=== PATIENT | male | born 1940 | race Caucasian/White ===

== ENCOUNTER 2016-09-21 15:18 | Observation (INO) | payer MEDICARE, BC ==
[2016-09-21 16:18] LABS: Basophils # (A) 0.1 k/uL (0-0.2); Basophils % (A) 1 %; CHCM 32.1; Eosinophils # (A) 0.3 k/uL (0-0.7); Eosinophils % (A) 3 %; HCT 35.7 % (39.0-53.0); HGB 11.8 gm/dL (13.0-17.5); Luc # (Auto) 0.13; Luc % (Auto) 1; Lymphocytes # (A) 1.6 k/uL (1.0-4.8); Lymphocytes % (A) 16 %; MCV 93.9 fL (80.0-100.0); Mean Platelet Volume 7.3; Monocytes # (A) 0.5 k/uL (0-1.0); Monocytes % (A) 5 %; Neutrophils # (A) 7.4 k/uL (1.3-7.7); Neutrophils % (A) 75 %; RDW 14.3 % (11.5-15.5); WBC 9.9 k/uL (3.8-10.6); WBC (Perox) 10.08
--- NOTE | 2016-09-21 16:22 | XR ---
EXAMINATION TYPE: XR chest 2V DATE OF EXAM: 09/21/2016 COMPARISON: NONE HISTORY: Syncope today and weakness. TECHNIQUE: Frontal and lateral views of the chest are obtained. FINDINGS: Underlying emphysematous change is present. There is no focal air space opacity, pleural e ffusion, or pneumothorax seen. The cardiac silhouette size is within normal limits. The osseous st ructures are intact. IMPRESSION: Chronic emphysematous change without suspicious acute process.
[2016-09-21 16:27] LABS: INR 1.1 (<1.1); Partial Thromboplastin Time 23.8 sec (22.0-30.0); Prothrombin Time 11.1 sec (9.0-12.0)
[2016-09-21 16:32] LABS: ALT 20 U/L (21-72); AST 18 U/L (17-59); Alkaline Phosphatase 56 U/L (38-126); Anion Gap 7 mmol/L; Blood Urea Nitrogen 29 mg/dL (9-20); Calcium 9.1 mg/dL (8.4-10.2); Carbon Dioxide 27 mmol/L (22-30); Chloride 108 mmol/L (98-107); Glucose 110 mg/dL (74-99); Magnesium 1.9 mg/dL (1.6-2.3); Non-African American GFR(MDRD) 60 (>60 ml/min/1.73 sqM); Potassium 4.3 mmol/L (3.5-5.1); Sodium 142 mmol/L (137-145); Total Bilirubin 0.5 mg/dL (0.2-1.3); Total Protein 6.2 g/dL (6.3-8.2)
[2016-09-21 16:42] LABS: Creatine Kinase 57 U/L (55-170)
[2016-09-21 16:55] LABS: Creatine Kinase MB 1.1 ng/mL (0.0-2.4); Troponin I <0.012 ng/mL (0.000-0.034)
[2016-09-21 18:01] LABS: Appearance,Urine Clear (Clear); Bilirubin,Urine Negative (Negative); Glucose,Urine (UA) Negative (Negative); Ketones,Urine Negative (Negative); Leukocyte Esterase,Urine Negative (Negative); Nitrite,Urine Negative (Negative); PH, Urine 5.5 (5.0-8.0); Protein,Urine Trace (Negative); Specific Gravity,Urine 1.017 (1.001-1.035); UA Billing (MACRO vs. MICRO) CHEM; Urobilinogen,Urine <2.0 mg/dL (<2.0)
[2016-09-21] MEDS ORDERED: NALOXONE 0.4 MG/ML 1 ML VIAL IV PRN (19:20)
[2016-09-21] MEDS ORDERED: ACETAMINOPHEN TAB 325 MG TAB PO PRN (19:20)
[2016-09-21] MEDS ORDERED: ONDANSETRON 4 MG/2 ML VIAL IVP PRN (19:20)
--- NOTE | 2016-09-21 19:33 | ED ---
General Adult HPI - General Chief complaint: Altered Mental Status Stated complaint: Hypotension Time Seen by Provider: 09/21/16 15:31 Source: patient, family, RN notes reviewed Mode of arrival: EMS Limitations: altered mental status, physical limitation - History of Present Illness Initial comments: 76-year-old male with history of dementia presents from home. According EMS patient had a blood pressure of 60 systolic. According the patient's family was more sleepy than usual. He has had nausea and diarrhea over the past several days. No episodes of vomiting patient proximally 4 episodes of diarrhea today. Patient is a poor historian but according to family does deny chest pain denies shortness of breath denies cough denies fever. Patient was recently started on Coumadin for coronary artery disease. He does have a history of hypertension as well. - Related Data Home Medications Medication Instructions Recorded Confirmed Aspirin [Children's Aspirin] 81 mg PO DAILY 09/21/16 09/21/16 Clopidogrel [Plavix] 75 mg PO DAILY 09/21/16 09/21/16 Isosorbide Mononitrate ER [Imdur] 30 mg PO QAM 09/21/16 09/21/16 Lisinopril [Zestril] 2.5 mg PO DAILY 09/21/16 09/21/16 Melatonin 6 mg PO HS PRN 09/21/16 09/21/16 Metoprolol Tartrate [Lopressor] 25 mg PO BID 09/21/16 09/21/16 Nitroglycerin Sl Tabs [Nitrostat] 0.4 mg SUBLINGUAL Q5M PRN 09/21/16 09/21/16 Ranolazine [Ranexa] 1,000 mg PO BID 09/21/16 09/21/16 traZODone HCL 50 mg PO HS 09/21/16 09/21/16 Allergies Allergy/AdvReac Type Severity Reaction Status Date / Time Penicillins Allergy Unknown Verified 09/21/16 15:33 Review of Systems ROS Statement: Those systems with pertinent positive or pertinent negative responses have been documented in the HPI. ROS Other: All systems not noted in ROS Statement are negative. Past Medical History Past Medical History: Atrial Fibrillation, Coronary Artery Disease (CAD), Dementia Additional Past Medical History / Comment(s): back pain History of Any Multi-Drug Resistant Organisms: None Reported Past Surgical History: Joint Replacement, Orthopedic Surgery Past Psychological History: No Psychological Hx Reported Smoking Status: Former smoker Past Alcohol Use History: None Reported Past Drug Use History: None Reported General Exam Limitations: altered mental status, physical limitation General appearance: alert Head exam: Present: atraumatic, normocephalic Eye exam: Present: normal appearance, PERRL, other (Conjunctiva) ENT exam: Present: mucous membranes dry Neck exam: Present: normal inspection, full ROM. Absent: meningismus Respiratory exam: Present: normal lung sounds bilaterally. Absent: respiratory distress, wheezes Cardiovascular Exam: Present: regular rate, normal rhythm GI/Abdominal exam: Present: soft. Absent: distended, tenderness Rectal exam: Present: normal rectal tone, heme (+) stool Extremities exam: Present: normal inspection. Absent: pedal edema Neurological exam: Present: alert. Absent: oriented X3, motor sensory deficit Psychiatric exam: Present: normal affect, normal mood Skin exam: Present: warm, dry. Absent: cyanosis, diaphoretic Course Vital Signs 09/21/16 09/21/16 09/21/16 15:18 16:28 17:27 Temperature 97.4 F L Pulse Rate 76 74 67 Respiratory 20 18 18 Rate Blood Pressure 80/48 83/52 99/55 O2 Sat by Pulse 94 L 98 100 Oximetry 09/21/16 09/21/16 18:31 19:07 Temperature Pulse Rate 78 77 Respiratory 18 18 Rate Blood Pressure 97/59 105/63 O2 Sat by Pulse 99 98 Oximetry - Reevaluation(s) Reevaluation #1: 09/21/16 19:30 Patient's family is updated. The patient will be admitted. EKG Findings - EKG Comments: EKG Findings:: EKG shows atrial fibrillation with a ventricular rate of 69, QRS duration is 90, QTC is 413. There is no ST segment Ibarra, note T-wave abnormalities. Medical Decision Making - Medical Decision Making 76-year-old male presenting from home with hypotension worsening confusion and multiple episodes of diarrhea. On examination patient does appear dehydrated, dry mucous membranes. Blood pressure improves with IV fluids. Hemoccult is positive. Patient is on Coumadin however his INR is nontherapeutic. He is on Coumadin for atrial fibrillation and coronary artery disease. Patient's change in mental status is likely related to hypotension. His pressure does improve with fluid administration. Hemoccult is positive but there is no melena or zan blood. Patient will be given Protonix. Continued IV hydration and will be admitted to internal medicine. Diagnosis hypotension, dehydration, GI bleed. - Lab Data Result diagrams: 09/21/16 15:40 09/21/16 15:40 Lab Results 09/21/16 09/21/16 09/21/16 Range/Units 15:40 15:40 15:40 WBC 9.9 (3.8-10.6) k/uL RBC 3.80 L (4.30-5.90) m/uL Hgb 11.8 L (13.0-17.5) gm/dL Hct 35.7 L (39.0-53.0) % MCV 93.9 (80.0-100.0) fL MCH 31.0 (25.0-35.0) pg MCHC 33.0 (31.0-37.0) g/dL RDW 14.3 (11.5-15.5) % Plt Count 205 (150-450) k/uL Neutrophils % 75 % Lymphocytes % 16 % Monocytes % 5 % Eosinophils % 3 % Basophils % 1 % Neutrophils # 7.4 (1.3-7.7) k/uL Lymphocytes # 1.6 (1.0-4.8) k/uL Monocytes # 0.5 (0-1.0) k/uL Eosinophils # 0.3 (0-0.7) k/uL Basophils # 0.1 (0-0.2) k/uL PT (9.0-12.0) sec INR (<1.1) APTT (22.0-30.0) sec Sodium 142 (137-145) mmol/L Potassium 4.3 (3.5-5.1) mmol/L Chloride 108 H (98-107) mmol/L Carbon Dioxide 27 (22-30) mmol/L Anion Gap 7 mmol/L BUN 29 H (9-20) mg/dL Creatinine 1.18 (0.66-1.25) mg/dL Est GFR (MDRD) Af Amer >60 (>60 ml/min/1.73 sqM) Est GFR (MDRD) Non-Af 60 (>60 ml/min/1.73 sqM) Glucose 110 H (74-99) mg/dL Plasma Lactic Acid Minesh (0.7-2.0) mmol/L Calcium 9.1 (8.4-10.2) mg/dL Magnesium 1.9 (1.6-2.3) mg/dL Total Bilirubin 0.5 (0.2-1.3) mg/dL AST 18 (17-59) U/L ALT 20 L (21-72) U/L Alkaline Phosphatase 56 (38-126) U/L Total Creatine Kinase 57 (55-170) U/L CK-MB (CK-2) 1.1 (0.0-2.4) ng/mL CK-MB (CK-2) Rel Index 1.9 Troponin I <0.012 (0.000-0.034) ng/mL Total Protein 6.2 L (6.3-8.2) g/dL Albumin 3.3 L (3.5-5.0) g/dL Urine Color Urine Appearance (Clear) Urine pH (5.0-8.0) Ur Specific Ava (1.001-1.035) Urine Protein (Negative) Urine Glucose (UA) (Negative) Urine Ketones (Negative) Urine Blood (Negative) Urine Nitrite (Negative) Urine Bilirubin (Negative) Urine Urobilinogen (<2.0) mg/dL Ur Leukocyte Esterase (Negative) Stool Occult Blood (Negative) 09/21/16 09/21/16 09/21/16 Range/Units 15:40 16:05 16:52 WBC (3.8-10.6) k/uL RBC (4.30-5.90) m/uL Hgb (13.0-17.5) gm/dL Hct (39.0-53.0) % MCV (80.0-100.0) fL MCH (25.0-35.0) pg MCHC (31.0-37.0) g/dL RDW (11.5-15.5) % Plt Count (150-450) k/uL Neutrophils % % Lymphocytes % % Monocytes % % Eosinophils % % Basophils % % Neutrophils # (1.3-7.7) k/uL Lymphocytes # (1.0-4.8) k/uL Monocytes # (0-1.0) k/uL Eosinophils # (0-0.7) k/uL Basophils # (0-0.2) k/uL PT 11.1 (9.0-12.0) sec INR 1.1 (<1.1) APTT 23.8 (22.0-30.0) sec Sodium (137-145) mmol/L Potassium (3.5-5.1) mmol/L Chloride (98-107) mmol/L Carbon Dioxide (22-30) mmol/L Anion Gap mmol/L BUN (9-20) mg/dL Creatinine (0.66-1.25) mg/dL Est GFR (MDRD) Af Amer (>60 ml/min/1.73 sqM) Est GFR (MDRD) Non-Af (>60 ml/min/1.73 sqM) Glucose (74-99) mg/dL Plasma Lactic Acid Minesh 1.1 (0.7-2.0) mmol/L Calcium (8.4-10.2) mg/dL Magnesium (1.6-2.3) mg/dL Total Bilirubin (0.2-1.3) mg/dL AST (17-59) U/L ALT (21-72) U/L Alkaline Phosphatase (38-126) U/L Total Creatine Kinase (55-170) U/L CK-MB (CK-2) (0.0-2.4) ng/mL CK-MB (CK-2) Rel Index Troponin I (0.000-0.034) ng/mL Total Protein (6.3-8.2) g/dL Albumin (3.5-5.0) g/dL Urine Color Urine Appearance (Clear) Urine pH (5.0-8.0) Ur Specific Ava (1.001-1.035) Urine Protein (Negative) Urine Glucose (UA) (Negative) Urine Ketones (Negative) Urine Blood (Negative) Urine Nitrite (Negative) Urine Bilirubin (Negative) Urine Urobilinogen (<2.0) mg/dL Ur Leukocyte Esterase (Negative) Stool Occult Blood Positive (Negative) 09/21/16 Range/Units 17:54 WBC (3.8-10.6) k/uL RBC (4.30-5.90) m/uL Hgb (13.0-17.5) gm/dL Hct (39.0-53.0) % MCV (80.0-100.0) fL MCH (25.0-35.0) pg MCHC (31.0-37.0) g/dL RDW (11.5-15.5) % Plt Count (150-450) k/uL Neutrophils % % Lymphocytes % % Monocytes % % Eosinophils % % Basophils % % Neutrophils # (1.3-7.7) k/uL Lymphocytes # (1.0-4.8) k/uL Monocytes # (0-1.0) k/uL Eosinophils # (0-0.7) k/uL Basophils # (0-0.2) k/uL PT (9.0-12.0) sec INR (<1.1) APTT (22.0-30.0) sec Sodium (137-145) mmol/L Potassium (3.5-5.1) mmol/L Chloride (98-107) mmol/L Carbon Dioxide (22-30) mmol/L Anion Gap mmol/L BUN (9-20) mg/dL Creatinine (0.66-1.25) mg/dL Est GFR (MDRD) Af Amer (>60 ml/min/1.73 sqM) Est GFR (MDRD) Non-Af (>60 ml/min/1.73 sqM) Glucose (74-99) mg/dL Plasma Lactic Acid Minesh (0.7-2.0) mmol/L Calcium (8.4-10.2) mg/dL Magnesium (1.6-2.3) mg/dL Total Bilirubin (0.2-1.3) mg/dL AST (17-59) U/L ALT (21-72) U/L Alkaline Phosphatase (38-126) U/L Total Creatine Kinase (55-170) U/L CK-MB (CK-2) (0.0-2.4) ng/mL CK-MB (CK-2) Rel Index Troponin I (0.000-0.034) ng/mL Total Protein (6.3-8.2) g/dL Albumin (3.5-5.0) g/dL Urine Color Yellow Urine Appearance Clear (Clear) Urine pH 5.5 (5.0-8.0) Ur Specific Ava 1.017 (1.001-1.035) Urine Protein Trace H (Negative) Urine Glucose (UA) Negative (Negative) Urine Ketones Negative (Negative) Urine Blood Negative (Negative) Urine Nitrite Negative (Negative) Urine Bilirubin Negative (Negative) Urine Urobilinogen <2.0 (<2.0) mg/dL Ur Leukocyte Esterase Negative (Negative) Stool Occult Blood (Negative) Disposition Clinical Impression: Altered mental status, Dehydration, Hypotension Disposition: ADMITTED IP TO THIS HOSP Condition: Stable Referrals: Sandra Allan MD [Primary Care Provider] - 1-2 days Decision to Admit Reason: Admit from EC Decision Date: 09/21/16 Decision Time: 18:00
[2016-09-21] MEDS ORDERED: traZODone HCL 50 MG TAB PO ONE (19:51)
[2016-09-21 20:54] VITALS: BMI 22.8
[2016-09-21] MEDS: DEXTROSE 5%-0.45% NACL 1,000 ML IV SCH (22:06)
[2016-09-21] MEDS: RANOLAZINE 500 MG TAB.ER.12H PO SCH (22:14)
[2016-09-22 07:42] LABS: Basophils % (A) 0 %; CH 30.5; CHCM 32.6; Eosinophils # (A) 0.5 k/uL (0-0.7); Eosinophils % (A) 5 %; HCT 32.7 % (39.0-53.0); HDW 2.44; HGB 10.9 gm/dL (13.0-17.5); Luc # (Auto) 0.17; Luc % (Auto) 2; Lymphocytes # (A) 2.4 k/uL (1.0-4.8); Lymphocytes % (A) 27 %; MCH 31.6 pg (25.0-35.0); MCHC 33.5 g/dL (31.0-37.0); MCV 94.2 fL (80.0-100.0); Mean Platelet Volume 7.4; Monocytes # (A) 0.5 k/uL (0-1.0); Monocytes % (A) 6 %; Neutrophils # (A) 5.2 k/uL (1.3-7.7); Neutrophils % (A) 59 %; RBC 3.47 m/uL (4.30-5.90); RDW 14.4 % (11.5-15.5); WBC 8.8 k/uL (3.8-10.6); WBC (Perox) 8.99
[2016-09-22] MEDS: PANTOPRAZOLE 40 MG/10 ML VIAL IVP SCH (07:43)
[2016-09-22] MEDS: RANOLAZINE 500 MG TAB.ER.12H PO SCH ×3 (07:43→21:04)
[2016-09-22] MEDS: DEXTROSE 5%-0.45% NACL 1,000 ML IV SCH ×2 (07:43→21:29)
[2016-09-22 08:10] LABS: Anion Gap 8 mmol/L; Blood Urea Nitrogen 22 mg/dL (9-20); Calcium 8.8 mg/dL (8.4-10.2); Carbon Dioxide 23 mmol/L (22-30); Chloride 109 mmol/L (98-107); Glucose 95 mg/dL (74-99); Non-African American GFR(MDRD) >60 (>60 ml/min/1.73 sqM); Sodium 140 mmol/L (137-145)
[2016-09-22] MEDS ORDERED: MELATONIN 3 MG TABLET PO PRN (15:16)
[2016-09-22] MEDS ORDERED: NITROGLYCERIN SL TABS 0.4 MG TAB SUBLINGUAL PRN (15:16)
[2016-09-22] MEDS: traZODone HCL 50 MG TAB PO SCH (21:04)
[2016-09-23] MEDS: DEXTROSE 5%-0.45% NACL 1,000 ML IV SCH ×3 (07:11→23:19)
[2016-09-23 07:50] LABS: Basophils # (A) 0.1 k/uL (0-0.2); Basophils % (A) 1 %; CH 30.4; CHCM 32.8; Eosinophils # (A) 0.7 k/uL (0-0.7); Eosinophils % (A) 8 %; HCT 35.1 % (39.0-53.0); HDW 2.44; HGB 11.8 gm/dL (13.0-17.5); Luc # (Auto) 0.21; Luc % (Auto) 2; Lymphocytes # (A) 2.8 k/uL (1.0-4.8); Lymphocytes % (A) 32 %; MCH 31.5 pg (25.0-35.0); MCHC 33.7 g/dL (31.0-37.0); MCV 93.4 fL (80.0-100.0); Mean Platelet Volume 7.3; Monocytes # (A) 0.6 k/uL (0-1.0); Monocytes % (A) 7 %; Neutrophils # (A) 4.3 k/uL (1.3-7.7); Neutrophils % (A) 50 %; RBC 3.75 m/uL (4.30-5.90); RDW 14.4 % (11.5-15.5); WBC 8.7 k/uL (3.8-10.6)
[2016-09-23 08:09] LABS: Anion Gap 8 mmol/L; Blood Urea Nitrogen 20 mg/dL (9-20); Calcium 9.2 mg/dL (8.4-10.2); Carbon Dioxide 27 mmol/L (22-30); Chloride 106 mmol/L (98-107); Glucose 95 mg/dL (74-99); Non-African American GFR(MDRD) >60 (>60 ml/min/1.73 sqM); Potassium 4.1 mmol/L (3.5-5.1); Sodium 141 mmol/L (137-145)
[2016-09-23] MEDS: CLOPIDOGREL 75 MG TAB PO SCH (08:25)
[2016-09-23] MEDS: RANOLAZINE 500 MG TAB.ER.12H PO SCH ×4 (08:25→23:17)
[2016-09-23] MEDS: ASPIRIN 81 MG CHEW PO SCH (08:26)
[2016-09-23] MEDS: PANTOPRAZOLE 40 MG/10 ML VIAL IVP SCH (08:26)
--- NOTE | 2016-09-23 09:48 | HP ---
DATE OF SERVICE: 09/22/2016 CHIEF COMPLAINT: Hypotension as well as change in mental status. HISTORY OF PRESENT ILLNESS: This 76-year-old gentleman with past medical history fo multiple medical problems including atrial fibrillation, CAD, dementia, history of back pain, DJD, being followed by Dr. Allan in the outpatient setting was brought to [facility] with complaints of hypotension, weakness. Blood pressure in 60s systolic. The patient is found to be sleepy. The patient also had diminished p.o. intake and the patient is being closely monitored. There is no history of any fevers, rigors. No history of headache, loss of consciousness. The patient is slightly more alert, but unable to give a coherent history. Most of history is taken from my discussion with staff and as review of the chart at this time. PAST MEDICAL HISTORY: Atrial fibrillation, CAD, dementia, back pain, DJD. Medications prior to admission include home medications: 1. Trazodone 50 mg p.o. q.h.s. 2. Ranexa 1000 mg p.o. b.i.d. 3. Imdur 30 mg p.o. q.a.m. 4. Plavix 75 mg p.o. daily. 5. Aspirin 81 mg p.o. daily. 6. Lopressor 25 mg p.o. daily. 7. Melatonin 6 mg p.o. q.h.s. p.r.n. 8. Zestril 2.5 mg p.o. daily. 9. Nitrostat 0.4 sublingual q.5 p.r.n. ALLERGIES: PENICILLIN. Family history, social history and review of systems could not be taken because of the change in mental status. PHYSICAL EXAM: The patient is conscious, confused. Pulse 74, blood pressure 114/ 59, respirations 18, temperature 98.1, pulse ox 94% on room air. HEENT: Conjunctivae normal. Oral mucosa dry. NECK: No jugular venous distention. No carotid bruit. No lymph node enlargement. CARDIOVASCULAR: S1, S2. No S3, no S4. RESPIRATORY: Breath sounds diminished at the bases. A few scattered rhonchi. No crackles. ABDOMEN: Soft, nontender. No mass palpable. LEGS: No edema. NERVOUS SYSTEM: Diffusely weak. LABS: WBC 8, hemoglobin 10.9. ASSESSMENT: 1. Severe hypotension secondary to dehydration, rule out cardiogenic shock. 2. Anemia, normocytic. No active bleeding. 3. Demential with acute on chronic metabolic encephalopathy. 4. History of coronary artery disease. 5. History atrial fibrillation. 6. History of back pain. RECOMMENDATIONS AND DISCUSSION; In this 76-year-old gentleman who presented with multiple complex medical issues. Will monitor the patient closely. Will continue the current medications, continue symptomatic treatment. Otherwise recommend 2-D echo. Repeat labs in the morning. PT, OT evaluation. Guarded prognosis because of multiple complex medical issues. I will resume the home medications, but hold the hypotensive medications and continue to monitor. Once again the prognosis guarded. Further recommendations to follow. See orders for details. Copy of dictation forwarded to Dr. Allan who is the primary physician. JENIFFER
--- NOTE | 2016-09-23 10:17 | ECHOF ---
Referral Reason:chf MEASUREMENTS -------- HEIGHT: 188.0 cm WEIGHT: 80.7 kg BP: 128/59 RVIDd: 3.2 cm (< 3.3) IVSd: 1.1 cm (0.6 - 1.1) LVIDd: 5.1 cm (3.9 - 5.3) LVPWd: 1.1 cm (0.6 - 1.1) IVSs: 1.5 cm LVIDs: 3.6 cm LVPWs: 1.6 cm LA Diam: 4.0 cm (2.7 - 3.8) LAESV Index (A-L): 25.69 ml/m Ao Diam: 3.8 cm (2.0 - 3.7) AV Cusp: 1.8 cm (1.5 - 2.6) MV EXCURSION: 20.477 mm (> 18.000) MV EF SLOPE: 178 mm/s (70 - 150) EPSS: 0.2 cm RAP: 5.00 mmHg RVSP: 29.32 mmHg FINDINGS -------- Atrial fibrillation. This was a technically adequate study. The left ventricular size is normal. There is borderline concentric left ventricular hypertrophy. Overall left ventricular systolic function is mildly impaired with, an EF between 45 - 50 %. Basal inferior LV wall motion is hypokinetic. Basal inferoseptal LV wall motion is hypokinetic. The right ventricle is normal in size. Normal LA size by volume 22+/-6 ml/m2. The right atrium is normal in size. There is mild aortic valve sclerosis. Mild mitral annular calcification present. Mild mitral regurgitation is present. Mild tricuspid regurgitation present. Right ventricular systolic pressure is normal at < 35 mmHg. The pulmonic valve was not well visualized. There is no pulmonic regurgitation present. The aortic root is dilated measuring 3.8cm. Normal inferior vena cava with normal inspiratory collapse consistent with estimated right atrial pressure of 5 mmHg. There is no pericardial effusion. CONCLUSIONS -------- 1. Atrial fibrillation. 2. Mild mitral annular calcification present. 3. Mild mitral regurgitation is present. 4. Mild tricuspid regurgitation present. 5. Right ventricular systolic pressure is normal at < 35 mmHg. 6. The pulmonic valve was not well visualized. 7. There is no pulmonic regurgitation present. 8. The aortic root is dilated measuring 3.8cm. 9. Normal inferior vena cava with normal inspiratory collapse consistent with estimated right atrial pressure of 5 mmHg. 10. There is no pericardial effusion. 11. This was a technically adequate study. 12. There is borderline concentric left ventricular hypertrophy. 13. Overall left ventricular systolic function is mildly impaired with, an EF between 45 - 50 %. 14. Basal inferior LV wall motion is hypokinetic. 15. Basal inferoseptal LV wall motion is hypokinetic. 16. The right ventricle is normal in size. 17. Normal LA size by volume 22+/-6 ml/m2. 18. There is mild aortic valve sclerosis. CLOTH BOLT BANDER: Leah Jama RDCS
[2016-09-23] MEDS: HEPARIN SODIUM,PORCINE 5,000 UNIT/ML 1 ML VIAL SQ SCH ×2 (15:39→21:38)
--- NOTE | 2016-09-23 16:23 | CONS ---
ATTENDING: Dr. Allan Mr. Goff is a 76-year-old male with known history of chronic atrial fibrillation who has a history of advanced dementia, was admitted through the emergency room because of progressive fatigue, sleepiness, according to the family. Cardiology consultation was requested because of the atrial fibrillation. I am not able to obtain any history from the patient. He has advanced dementia. According to the notes available to me he has history of CAD , although the details are not available to me. Apparently he was found to be more sleepy prior to admission and his blood pressure was on the low side and because of that he was brought into the emergency room. Review of systems could not be obtained. His medications at home included Trazodone, Ranexa 1 gram twice a day, Plavix 75 mg daily, isosorbide mononitrate 30 mg daily, aspirin once a day, metoprolol tartrate 25 mg twice a day, lisinopril 2.5 mg daily, melatonin. It is unclear to me if the patient has been anticoagulated in the past and if not why not. I do not have any old records otherwise. PHYSICAL EXAMINATION: A 76-year-old male alert, confused, in no apparent distress. Blood pressure 116/90 with heart rate in the 90s. HEAD: Normocephalic. EYES: Sclerae anicteric. NECK: No bruit. LUNGS: Clear to auscultation. HEART: Irregular irregular, S1, S2. No S3 with systolic murmur at the bases. No diastolic murmur. No rub. ABDOMEN: Soft, nontender, positive bowel sounds. No organomegaly. EXTREMITIES: No edema and intact distal pulses. LAB DATA: Revealed a BUN and creatinine of 20 and 1.03. He is heme positive. His hemoglobin is 11.8. On admission the BUN and creatinine were 29 and 1.18. His troponin was less than 0.012. His EKG shows atrial fibrillation with nonspecific ST-T wave changes. His chest x-ray revealed no acute infiltrate. He had an echocardiogram that showed an ejection fraction of 45% with mild mitral and tricuspid regurgitation. IMPRESSION: 1. Episode of hypotension with decreased mentation, appears to be improved at this time. The reason behind the episode is unclear to me. The patient may have been a little bit dehydrated. His blood pressure has been stable in the last 24- hours. His LAURA inhibitor has been on hold. 2. Atrial fibrillation appears to be chronic. 3. Prior history of coronary artery disease according to the medication available, the patient is on aspirin and Plavix as well as Ranexa, but the details of that are not available. 4. History of dementia. 5. Heme positive stool. RECOMMENDATIONS: From the cardiac standpoint, I do not believe he is a candidate for any further cardiac workup. Depending on his blood pressure, his beta asim can be reinitiated if needed as an outpatient. Thank you for this consult. I will see him on as needed basis. Please feel free to call us for any questions. JENIFFER
--- NOTE | 2016-09-23 19:48 | P.PN ---
Subjective Date of service 09/23/2016. Progress notel being dictated for Dr. Maya. Interval history: This is a 76-year-old gentleman admitted with severe hypotension, dehydration, anemia, mental status changes, A. fib and multiple other medical issues including history of falls. Apparently 2 months ago patient consumed antifreeze, received emergent hemodialysis and developed complex clots and bilateral legs. Elevated d-dimer, the patient denies chest pain, palpitations or increasing shortness of breath, therefore no further workup at this time. Echo reporting moderately impaired LV function, EF between 45 and 50%, hypokinetic basal inferior and inferior septal LV wall motion, dilated aortic root 3.8. Evaluated by cardiology, recommendations noted. Objective - Vital Signs Vital signs: Vital Signs Temp 97.3 F L 09/23/16 15:00 Pulse 78 09/23/16 16:00 Resp 16 09/23/16 16:00 BP 113/85 09/23/16 15:00 Pulse Ox 95 09/23/16 15:00 Intake & Output 09/23/16 09/23/16 09/24/16 06:59 18:59 06:59 Intake Total 1480 Balance 1480 Weight 80.739 kg Intake: Intake, IV Titration 600 Amount Dextrose 5%-0.45% NaCl 1, 600 000 ml @ 100 mls/hr IV . Q10H [facility] Rx#:[id number] Oral 880 Other: Voiding Method Toilet Toilet Urinal Urinal # Voids 1 1 - Exam PHYSICAL EXAM: VITAL SIGNS: As above GENERAL: [Sitting up in bed, no acute distress] HEENT: [Pupils equal conjunctiva normal.] NECK: [Supple, no JVD] RESPIRATORY EFFORT:[ Normal] LUNGS: [Clear to auscultation, bilateral bases diminished, no wheezing rhonchi or crackles] CARDIOVASCULAR[ irregular, positive systolic murmur, no edema] GI: [Abdomen soft, nontender, positive bowel sounds.] PSYCH: [Alert and oriented -3, mood and affect normal.] NEURO: Patient has advanced dementia, unable to assess - Labs CBC & Chem 7: 09/23/16 07:23 09/23/16 07:23 Labs: Abnormal Lab Results - Last 24 Hours (Table) 09/23/16 09/23/16 Range/Units 07:23 09:44 RBC 3.75 L (4.30-5.90) m/uL Hgb 11.8 L (13.0-17.5) gm/dL Hct 35.1 L (39.0-53.0) % D-Dimer 1.00 H (<0.60) mg/L FEU Microbiology - Last 24 Hours (Table) 09/21/16 18:50 Blood Culture - Preliminary Blood No Growth after 24 hours Assessment and Plan Plan: 1. [ Severe hypotension secondary to dehydration, improving]. 2. [ Anemia, normocytic, of chronic disease without active bleeding]. 3. [ Advanced dementia with acute on chronic metabolic encephalopathy]. 4. [ CAD]. 5. [ Chronic atrial fibrillation]. 6. [ Chronic back pain]. 7. Dilated aortic root 3.8 Plan: Continue current medication regime, monitoring, and symptomatic treatment. Anticoagulation recommendations pending per cardiology. Met with daughter, updated, discussed anticoagulation, and family meeting scheduled for tomorrow. Occupational therapy evaluation pending with potential recommendations for long-term care. ECF. Case management to verify Xarelto coverage in regards to blood clots. Prognosis guarded given multiple complex medical issues. Staff instructed to obtain [facility] records. The impression and plan of care has been dictated as directed. : I performed a H&P examination of this patient and discussed the same with the dictator. I agree with the dictator's note. Any additional findings/opinions/ etc. will be noted.
[2016-09-23] MEDS: traZODone HCL 50 MG TAB PO SCH ×2 (21:38→23:18)
[2016-09-24] MEDS: DEXTROSE 5%-0.45% NACL 1,000 ML IV SCH (07:12)
[2016-09-24 08:09] LABS: Basophils # (A) 0.1 k/uL (0-0.2); Basophils % (A) 1 %; CH 30.5; CHCM 33.1; Eosinophils # (A) 0.7 k/uL (0-0.7); Eosinophils % (A) 7 %; HCT 38.2 % (39.0-53.0); HDW 2.42; HGB 13.1 gm/dL (13.0-17.5); Luc # (Auto) 0.18; Luc % (Auto) 2; Lymphocytes # (A) 2.5 k/uL (1.0-4.8); Lymphocytes % (A) 26 %; MCH 31.7 pg (25.0-35.0); MCHC 34.2 g/dL (31.0-37.0); MCV 92.7 fL (80.0-100.0); Mean Platelet Volume 7.4; Monocytes # (A) 0.6 k/uL (0-1.0); Monocytes % (A) 7 %; Neutrophils # (A) 5.4 k/uL (1.3-7.7); Neutrophils % (A) 57 %; RBC 4.12 m/uL (4.30-5.90); RDW 14.5 % (11.5-15.5); WBC 9.4 k/uL (3.8-10.6); WBC (Perox) 8.95
[2016-09-24 08:14] VITALS: RESP 16
[2016-09-24] MEDS: PANTOPRAZOLE 40 MG/10 ML VIAL IVP SCH (08:23)
[2016-09-24] MEDS: ASPIRIN 81 MG CHEW PO SCH (08:24)
[2016-09-24 08:25] LABS: Anion Gap 9 mmol/L; Blood Urea Nitrogen 23 mg/dL (9-20); Calcium 9.9 mg/dL (8.4-10.2); Carbon Dioxide 27 mmol/L (22-30); Chloride 105 mmol/L (98-107); Glucose 97 mg/dL (74-99); Non-African American GFR(MDRD) >60 (>60 ml/min/1.73 sqM); Potassium 4.3 mmol/L (3.5-5.1); Sodium 141 mmol/L (137-145)
[2016-09-24] MEDS: CLOPIDOGREL 75 MG TAB PO SCH (08:27)
[2016-09-24] MEDS: HEPARIN SODIUM,PORCINE 5,000 UNIT/ML 1 ML VIAL SQ SCH (08:27)
[2016-09-24] MEDS: RANOLAZINE 500 MG TAB.ER.12H PO SCH (08:29)
--- NOTE | 2016-09-24 12:54 | P.PN ---
Subjective Date of service 09/24/2016. Progress notel being dictated for Dr. Maya. Interval history: This is a 76-year-old gentleman admitted with severe hypotension, dehydration, anemia, mental status changes, A. fib and multiple other medical issues including history of falls. Remains significantly confused , drinking anything within reach, currently drinking syrup for pancakes. Occupational therapy evaluation pending. Case management verifying outpatient Xarelto coverage. [facility] [place], pending. Denies any chest pain, palpitations or increased shortness of breath. Afebrile. Objective - Vital Signs Vital signs: Vital Signs Temp 98.1 F 09/24/16 07:00 Pulse 91 09/24/16 08:00 Resp 16 09/24/16 08:00 BP 104/67 09/24/16 07:00 Pulse Ox 95 09/24/16 07:00 Intake & Output 09/23/16 09/24/16 09/24/16 18:59 06:59 18:59 Intake Total 1480 240 Balance 1480 240 Weight 80.739 kg 80.739 kg Intake: Intake, IV Titration 600 Amount Dextrose 5%-0.45% NaCl 1, 600 000 ml @ 100 mls/hr IV . Q10H [facility] Rx#:[id number] Oral 880 240 Other: Voiding Method Toilet Toilet Toilet Urinal Urinal Urinal # Voids 1 1 1 - Exam PHYSICAL EXAM: VITAL SIGNS: As above GENERAL: [Sitting up in bed, no acute distress] HEENT: [Pupils equal conjunctiva normal.] NECK: [Supple, no JVD] RESPIRATORY EFFORT:[ Normal] LUNGS: [Clear to auscultation, bilateral bases diminished, no wheezing rhonchi or crackles] CARDIOVASCULAR[ irregular, positive systolic murmur, no edema] GI: [Abdomen soft, nontender, positive bowel sounds.] PSYCH: [Alert and oriented -1, mood and affect cooperative, pleasant NEURO: Patient has advanced dementia, unable to assess - Labs CBC & Chem 7: 09/24/16 07:48 09/24/16 07:48 Labs: Abnormal Lab Results - Last 24 Hours (Table) 09/24/16 09/24/16 Range/Units 07:48 07:48 RBC 4.12 L (4.30-5.90) m/uL Hct 38.2 L (39.0-53.0) % BUN 23 H (9-20) mg/dL Microbiology - Last 24 Hours (Table) 09/21/16 18:50 Blood Culture - Preliminary Blood No Growth after 48 hours Assessment and Plan Plan: 1. [ Severe hypotension secondary to dehydration, improving]. 2. [ Anemia, normocytic, of chronic disease without active bleeding, improving]. 3. [ Advanced dementia with acute on chronic metabolic encephalopathy]. 4. [ CAD]. 5. [ Chronic atrial fibrillation]. 6. [ Chronic back pain]. 7. Dilated aortic root 3.8 Plan: Continue current medication regime, monitoring, and symptomatic treatment. Case management verifying outpatient Xarelto coverage. Family meeting this afternoon pending. [facility] records ordered, pending. Occupational therapy evaluation pending with potential recommendations for long-term care. [facility]CF. Further recommendations to follow. The impression and plan of care has been dictated as directed. : I performed a H&P examination of this patient and discussed the same with the dictator. I agree with the dictator's note. Any additional findings/opinions/ etc. will be noted.
--- NOTE | 2016-09-24 15:10 | P.DS ---
Providers Date of admission: 09/21/16 19:24 Expected date of discharge: 09/24/16 Attending physician: Jasen Maya Consults: 09/23/16 09:26 Consult Physician Routine Consulting Provider: Yahir Kong Consult Reason/Comments: A.fib Do you want consulting provider notified?: Yes Primary care physician: Sandra Allan Hospital Course: Final Diagnoses: 1. Severe hypotension secondary to dehydration, improved 2. Anemia, normocytic, of chronic disease without active bleeding, improving]. 3. [Advanced dementia with acute on chronic metabolic encephalopathy]. 4. CAD]. 5. Chronic atrial fibrillation]. 6. Chronic back pain]. 7. Dilated aortic root 3.8 This is a 76-year-old gentleman admitted with severe hypotension, dehydration, anemia, mental status changes, A. fib and multiple other medical issues including history of falls. Evaluated by Cardiology.Maintained on IV fluid Hydration, further medication adjustments with significant clinical improvement.Cleared by Cardiology for discharge. Anticoagulation, medication adjustments discussed with family; pt. to resume home meds of coumadin, plavix , aspirin. Patient being discharged home in a stable condition with a guarded position. The impression and plan of care has been dictated as directed as a scribe.. : I performed a H&P examination of this patient and discussed the same with the dictator. I agree with the dictator's note. Any additional findings/opinions/ etc. will be noted. Patient Condition at Discharge: Stable Plan - Discharge Summary New Discharge Prescriptions: New QUEtiapine [SEROquel] 25 mg PO HS #30 tab Warfarin Sodium [Coumadin] 7.5 mg PO DAILY #1 tablet Pantoprazole Sodium [Protonix] 40 mg PO DAILY #30 tablet.dr Continue Ranolazine [Ranexa] 1,000 mg PO BID Clopidogrel [Plavix] 75 mg PO DAILY Aspirin [Children's Aspirin] 81 mg PO DAILY Metoprolol Tartrate [Lopressor] 25 mg PO BID Melatonin 6 mg PO HS PRN PRN Reason: Insomnia Nitroglycerin Sl Tabs [Nitrostat] 0.4 mg SUBLINGUAL Q5M PRN PRN Reason: Chest Pain Discontinued Lisinopril [Zestril] 2.5 mg PO DAILY traZODone HCL 50 mg PO HS Discharge Medication List Aspirin [Children's Aspirin] 81 mg PO DAILY 09/21/16 [History] Clopidogrel [Plavix] 75 mg PO DAILY 09/21/16 [History] Melatonin 6 mg PO HS PRN 09/21/16 [History] Metoprolol Tartrate [Lopressor] 25 mg PO BID 09/21/16 [History] Nitroglycerin Sl Tabs [Nitrostat] 0.4 mg SUBLINGUAL Q5M PRN 09/21/16 [History] Ranolazine [Ranexa] 1,000 mg PO BID 09/21/16 [History] Pantoprazole Sodium [Protonix] 40 mg PO DAILY #30 tablet. 09/24/16 [Rx] QUEtiapine [SEROquel] 25 mg PO HS #30 tab 09/24/16 [Rx] Warfarin Sodium [Coumadin] 7.5 mg PO DAILY #1 tablet 09/24/16 [Rx] Follow up Appointment(s)/Referral(s): Sandra Allan MD [Primary Care Provider] - [address] [facility] [place] Informatics Educator [Other] - 1 Week Ambulatory/Diagnostic Orders: Prothrombin Time INR [LAB.AMB] Time Frame: 09/28/16, Location: Determined By Patient Activity/Diet/Wound Care/Special Instructions: Imdur on hold r/t Hypotension, re-eval op. with PCP Discharge Disposition: HOME WITH HOME HEALTH SERVICES
[2016-09-24 15:38] VITALS: BP 109/68; PULSE 80; TEMP 97.9
== END 2016-09-24 17:20 | disposition home health service (06) ==
LOC: EC 15:18 → SUPCPDRO 15:18 → 5MS5E 19:24
PROVIDERS: ADMIT Hospitalist; ATTEND Hospitalist
DX: E86.0 Dehydration (principal); I95.9 Hypotension, unspecified; D63.8 Anemia in other chronic diseases classified elsewhere; G93.41 Metabolic encephalopathy; F03.90 Unspecified dementia, unspecified severity, without behavioral disturbance, psychotic disturbance, mood disturbance, and anxiety; I10 Essential (primary) hypertension; I25.10 Atherosclerotic heart disease of native coronary artery without angina pectoris; I48.2 Chronic atrial fibrillation; G89.29 Other chronic pain; Z91.81 History of falling; Z79.899 Other long term (current) drug therapy; Z79.02 Long term (current) use of antithrombotics/antiplatelets; Z79.82 Long term (current) use of aspirin; Z88.0 Allergy status to penicillin; Z87.891 Personal history of nicotine dependence; M19.90 Unspecified osteoarthritis, unspecified site; M54.9 Dorsalgia, unspecified; R19.5 Other fecal abnormalities; I77.810 Thoracic aortic ectasia
CPT/HCPCS: 99285 ×2; 96376; 96372 ×2; 96374; 36415; 94760; 93005; 93306; 97161; 97165; 85379; 80053; 80048 ×3; 82550; 82553; 83605; 83735; 84484; 85025 ×4; 85610; 85730; 82272; 81003; 87040; 71020; G0378 ×4; J1644 ×2; C9113 ×2

== ENCOUNTER 2016-10-05 14:55 | Emergency (ER) | payer MEDICARE, BC ==
[2016-10-05] MEDS ORDERED: SODIUM CHLORIDE 0.9% 1,000 ML IV STA (15:49)
[2016-10-05 16:04] LABS: Basophils % (A) 1 %; CH 31.1; CHCM 32.6; Eosinophils # (A) 0.4 k/uL (0-0.7); Eosinophils % (A) 5 %; HCT 40.1 % (39.0-53.0); HDW 2.31; HGB 13.2 gm/dL (13.0-17.5); Luc # (Auto) 0.13; Luc % (Auto) 2; Lymphocytes # (A) 1.6 k/uL (1.0-4.8); Lymphocytes % (A) 19 %; MCH 31.5 pg (25.0-35.0); MCHC 32.8 g/dL (31.0-37.0); MCV 95.9 fL (80.0-100.0); Mean Platelet Volume 7.6; Monocytes # (A) 0.6 k/uL (0-1.0); Monocytes % (A) 7 %; Neutrophils # (A) 5.8 k/uL (1.3-7.7); Neutrophils % (A) 68 %; RBC 4.18 m/uL (4.30-5.90); RDW 15.2 % (11.5-15.5); WBC 8.6 k/uL (3.8-10.6); WBC (Perox) 8.65
[2016-10-05 16:13] LABS: Calcium 9.2 mg/dL (8.4-10.2); Phosphorous 4.4 mg/dL (2.5-4.5); Potassium 4.8 mmol/L (3.5-5.1); Total Bilirubin 0.3 mg/dL (0.2-1.3); Total Protein 6.7 g/dL (6.3-8.2)
[2016-10-05 16:19] LABS: INR 2.9 (<1.2); Partial Thromboplastin Time 32.8 sec (22.0-30.0); Prothrombin Time 28.1 sec (9.0-12.0)
--- NOTE | 2016-10-05 16:20 | ED ---
General Adult HPI - General Chief complaint: Syncope Stated complaint: syncope Time Seen by Provider: 10/05/16 15:48 Source: patient, RN notes reviewed, old records reviewed Mode of arrival: EMS Limitations: altered mental status - History of Present Illness Initial comments: This is a 76-year-old male to the ER for evaluation. Patient presents to ER today for evaluation of likely syncopal near syncopal event. Patient has been having issues with dementia medications. Patient states that he has no complaints, family concerned of her medications given. Medications given in the wrong order wrong dose over the weekend. The patient has family with him today were not with him during the week and are unsure what medications were given or at what times. Again at this time patient has no complaints. - Related Data Home Medications Medication Instructions Recorded Confirmed Clopidogrel [Plavix] 75 mg PO DAILY 09/21/16 10/05/16 Melatonin 6 mg PO HS PRN 09/21/16 10/05/16 Metoprolol Tartrate [Lopressor] 25 mg PO BID 09/21/16 10/05/16 Nitroglycerin Sl Tabs [Nitrostat] 0.4 mg SUBLINGUAL Q5M PRN 09/21/16 10/05/16 Ranolazine [Ranexa] 1,000 mg PO BID 09/21/16 10/05/16 Lisinopril [Zestril] 2.5 mg PO DAILY 10/05/16 10/05/16 Warfarin Sodium [Coumadin] 11.25 mg PO DAILY 10/05/16 10/05/16 Previous Rx's Medication Instructions Recorded Pantoprazole Sodium [Protonix] 40 mg PO DAILY #30 tablet. 09/24/16 QUEtiapine [SEROquel] 25 mg PO HS #30 tab 09/24/16 Allergies Allergy/AdvReac Type Severity Reaction Status Date / Time Penicillins Allergy Unknown Verified 10/05/16 15:50 Childhood Review of Systems ROS Statement: Those systems with pertinent positive or pertinent negative responses have been documented in the HPI. ROS Other: All systems not noted in ROS Statement are negative. Past Medical History Past Medical History: Atrial Fibrillation, Coronary Artery Disease (CAD), Dementia Additional Past Medical History / Comment(s): back pain History of Any Multi-Drug Resistant Organisms: None Reported Past Surgical History: Joint Replacement, Orthopedic Surgery Past Psychological History: No Psychological Hx Reported Smoking Status: Former smoker - Past Family History Father History Unknown: Yes Mother History Unknown: Yes General Exam Limitations: altered mental status General appearance: alert, in no apparent distress Head exam: Present: atraumatic, normocephalic, normal inspection Eye exam: Present: normal appearance, PERRL, EOMI. Absent: scleral icterus, conjunctival injection, periorbital swelling ENT exam: Present: normal exam, mucous membranes moist Neck exam: Present: normal inspection. Absent: tenderness, meningismus, lymphadenopathy Respiratory exam: Present: normal lung sounds bilaterally. Absent: respiratory distress, wheezes, rales, rhonchi, stridor Cardiovascular Exam: Present: regular rate, normal rhythm, normal heart sounds. Absent: systolic murmur, diastolic murmur, rubs, gallop, clicks GI/Abdominal exam: Present: soft, normal bowel sounds. Absent: distended, tenderness, guarding, rebound, rigid Extremities exam: Present: normal inspection, full ROM, normal capillary refill. Absent: tenderness, pedal edema, joint swelling, calf tenderness Back exam: Present: normal inspection Neurological exam: Present: alert, oriented X3, CN II-XII intact Psychiatric exam: Present: normal affect, normal mood Skin exam: Present: warm, dry, intact, normal color. Absent: rash Course Vital Signs 10/05/16 14:58 Temperature 96.8 F L Pulse Rate 69 Respiratory 16 Rate Blood Pressure 118/71 O2 Sat by Pulse 96 Oximetry - Reevaluation(s) Reevaluation #1: 10/05/16 16:18 Patient currently awake alert, denies complaint family states mental status is baseline Reevaluation #2: 10/05/16 16:18 Daughter denies patient actually having syncopal event, states he was just decreased alertness, also he was taking a nap. Reevaluation #3: 10/05/16 16:42 Patient is without complaint, remains without complaint EKG Findings - EKG Comments: EKG Findings:: EKG shows undetermined rhythm rate of 74, QRS 90, QTC 441 Medical Decision Making - Medical Decision Making 76 male here for evaluation of near syncopal, lethargic event. Patient is not passed out here in the emergency room. Patient is awake and alert throughout entire stay. Again denies any complaints. Patient can be discharged home - Lab Data Result diagrams: 10/05/16 15:05 10/05/16 15:05 Lab Results 10/05/16 10/05/16 10/05/16 Range/Units 15:05 15:05 15:05 WBC 8.6 (3.8-10.6) k/uL RBC 4.18 L (4.30-5.90) m/uL Hgb 13.2 (13.0-17.5) gm/dL Hct 40.1 (39.0-53.0) % MCV 95.9 (80.0-100.0) fL MCH 31.5 (25.0-35.0) pg MCHC 32.8 (31.0-37.0) g/dL RDW 15.2 (11.5-15.5) % Plt Count 249 (150-450) k/uL Neutrophils % 68 % Lymphocytes % 19 % Monocytes % 7 % Eosinophils % 5 % Basophils % 1 % Neutrophils # 5.8 (1.3-7.7) k/uL Lymphocytes # 1.6 (1.0-4.8) k/uL Monocytes # 0.6 (0-1.0) k/uL Eosinophils # 0.4 (0-0.7) k/uL Basophils # 0.0 (0-0.2) k/uL PT (9.0-12.0) sec INR (<1.2) APTT (22.0-30.0) sec D-Dimer (<0.60) mg/L FEU Sodium 141 (137-145) mmol/L Potassium 4.8 (3.5-5.1) mmol/L Chloride 104 (98-107) mmol/L Carbon Dioxide 28 (22-30) mmol/L Anion Gap 9 mmol/L BUN 30 H (9-20) mg/dL Creatinine 1.41 H (0.66-1.25) mg/dL Est GFR (MDRD) Af Amer 59 (>60 ml/min/1.73 sqM) Est GFR (MDRD) Non-Af 49 (>60 ml/min/1.73 sqM) Glucose 86 (74-99) mg/dL Calcium 9.2 (8.4-10.2) mg/dL Phosphorus 4.4 (2.5-4.5) mg/dL Magnesium 2.0 (1.6-2.3) mg/dL Total Bilirubin 0.3 (0.2-1.3) mg/dL AST 20 (17-59) U/L ALT 29 (21-72) U/L Alkaline Phosphatase 55 (38-126) U/L Total Creatine Kinase 56 (55-170) U/L CK-MB (CK-2) 1.0 (0.0-2.4) ng/mL CK-MB (CK-2) Rel Index 1.8 Troponin I <0.012 (0.000-0.034) ng/mL Total Protein 6.7 (6.3-8.2) g/dL Albumin 3.8 (3.5-5.0) g/dL 10/05/16 Range/Units 15:05 WBC (3.8-10.6) k/uL RBC (4.30-5.90) m/uL Hgb (13.0-17.5) gm/dL Hct (39.0-53.0) % MCV (80.0-100.0) fL MCH (25.0-35.0) pg MCHC (31.0-37.0) g/dL RDW (11.5-15.5) % Plt Count (150-450) k/uL Neutrophils % % Lymphocytes % % Monocytes % % Eosinophils % % Basophils % % Neutrophils # (1.3-7.7) k/uL Lymphocytes # (1.0-4.8) k/uL Monocytes # (0-1.0) k/uL Eosinophils # (0-0.7) k/uL Basophils # (0-0.2) k/uL PT 28.1 H (9.0-12.0) sec INR 2.9 H (<1.2) APTT 32.8 H (22.0-30.0) sec D-Dimer 0.54 (<0.60) mg/L FEU Sodium (137-145) mmol/L Potassium (3.5-5.1) mmol/L Chloride (98-107) mmol/L Carbon Dioxide (22-30) mmol/L Anion Gap mmol/L BUN (9-20) mg/dL Creatinine (0.66-1.25) mg/dL Est GFR (MDRD) Af Amer (>60 ml/min/1.73 sqM) Est GFR (MDRD) Non-Af (>60 ml/min/1.73 sqM) Glucose (74-99) mg/dL Calcium (8.4-10.2) mg/dL Phosphorus (2.5-4.5) mg/dL Magnesium (1.6-2.3) mg/dL Total Bilirubin (0.2-1.3) mg/dL AST (17-59) U/L ALT (21-72) U/L Alkaline Phosphatase (38-126) U/L Total Creatine Kinase (55-170) U/L CK-MB (CK-2) (0.0-2.4) ng/mL CK-MB (CK-2) Rel Index Troponin I (0.000-0.034) ng/mL Total Protein (6.3-8.2) g/dL Albumin (3.5-5.0) g/dL Disposition Clinical Impression: Altered mental status, Dehydration Disposition: HOME SELF-CARE Condition: Good Instructions: Dehydration (ED) Referrals: Sandra Allan MD [Primary Care Provider] - 1-2 days
[2016-10-05 16:26] LABS: Creatine Kinase 56 U/L (55-170)
[2016-10-05 16:39] LABS: Troponin I <0.012 ng/mL (0.000-0.034)
[2016-10-05 17:20] VITALS: BP 113/65; PULSE 70; RESP 18; TEMP 98.2
== END 2016-10-05 17:20 | disposition home or self-care (01) ==
LOC: EC 14:55
DX: R41.82 Altered mental status, unspecified (principal); E86.0 Dehydration; R55 Syncope and collapse; R53.83 Other fatigue; I48.91 Unspecified atrial fibrillation; I25.10 Atherosclerotic heart disease of native coronary artery without angina pectoris; F03.90 Unspecified dementia, unspecified severity, without behavioral disturbance, psychotic disturbance, mood disturbance, and anxiety; Z87.891 Personal history of nicotine dependence; Z79.01 Long term (current) use of anticoagulants; Z79.899 Other long term (current) drug therapy; Z88.0 Allergy status to penicillin
CPT/HCPCS: 36415; 80053; 82550; 82553; 83735; 84100; 84484; 85025; 85379; 85610; 85730; 93005; 96360; 99285

== ENCOUNTER 2016-10-27 11:04 | Inpatient (IN) | payer MEDICARE, BC ==
[2016-10-27] MEDS ORDERED: SODIUM CHLORIDE 0.9% 1,000 ML IV STA (11:11)
--- NOTE | 2016-10-27 11:15 | ED ---
SOB HPI - General Stated Complaint: SOB Time Seen by Provider: 10/27/16 11:04 Source: patient, EMS, RN notes reviewed Mode of arrival: EMS - History of Present Illness Initial Comments: This is a 68-year-old male who presents with complaints of shortness of breath exertional dyspnea over last week he does have chronic shortness of breath but is worse over last week EMS was called he was noted have a blood pressure 95/56 after 250 mL bolus of was 88/60. He had a recent emergency department visits and was noted those times be dehydrated. He does have a history of chronic A. fib also dementia and Alzheimer's disease. No other reports of any other problems. MD Complaint: shortness of breath - Related Data Home Medications Medication Instructions Recorded Confirmed Clopidogrel [Plavix] 75 mg PO DAILY 09/21/16 10/27/16 Melatonin 6 mg PO HS PRN 09/21/16 10/27/16 Metoprolol Tartrate [Lopressor] 25 mg PO BID 09/21/16 10/27/16 Nitroglycerin Sl Tabs [Nitrostat] 0.4 mg SUBLINGUAL Q5M PRN 09/21/16 10/27/16 Ranolazine [Ranexa] 1,000 mg PO BID 09/21/16 10/27/16 Lisinopril [Zestril] 2.5 mg PO DAILY 10/05/16 10/27/16 Warfarin Sodium [Coumadin] 5 mg PO HS 10/27/16 10/27/16 Previous Rx's Medication Instructions Recorded Pantoprazole Sodium [Protonix] 40 mg PO DAILY #30 tablet. 09/24/16 QUEtiapine [SEROquel] 25 mg PO HS #30 tab 09/24/16 Allergies Allergy/AdvReac Type Severity Reaction Status Date / Time Penicillins Allergy Unknown Verified 10/27/16 11:43 Childhood Review of Systems ROS Statement: Those systems with pertinent positive or pertinent negative responses have been documented in the HPI. ROS Other: All systems not noted in ROS Statement are negative. Past Medical History Past Medical History: Atrial Fibrillation, Coronary Artery Disease (CAD), Dementia Additional Past Medical History / Comment(s): back pain History of Any Multi-Drug Resistant Organisms: None Reported Past Surgical History: Joint Replacement, Orthopedic Surgery Past Psychological History: No Psychological Hx Reported Smoking Status: Former smoker - Past Family History Father History Unknown: Yes Mother History Unknown: Yes General Exam - General Exam Comments Initial Comments: This is a well-developed well-nourished awake alert oriented male General appearance: alert, in no apparent distress Head exam: Present: atraumatic, normocephalic, normal inspection Eye exam: Present: normal appearance, PERRL, EOMI. Absent: scleral icterus, conjunctival injection, periorbital swelling ENT exam: Present: mucous membranes dry Neck exam: Present: normal inspection. Absent: tenderness, meningismus, lymphadenopathy Respiratory exam: Present: normal lung sounds bilaterally. Absent: respiratory distress, wheezes, rales, rhonchi, stridor Cardiovascular Exam: Present: regular rate, normal rhythm, normal heart sounds. Absent: systolic murmur, diastolic murmur, rubs, gallop, clicks GI/Abdominal exam: Present: soft, normal bowel sounds. Absent: distended, tenderness, guarding, rebound, rigid Extremities exam: Present: normal inspection, full ROM, normal capillary refill. Absent: tenderness, pedal edema, joint swelling, calf tenderness Back exam: Present: normal inspection Neurological exam: Present: alert, oriented X3, CN II-XII intact Psychiatric exam: Present: normal affect, normal mood Skin exam: Present: warm, dry, intact, normal color. Absent: rash Course Vital Signs 10/27/16 10/27/16 10/27/16 11:19 11:30 12:25 Temperature 98.3 F Pulse Rate 78 72 Respiratory 18 18 18 Rate Blood Pressure 94/54 98/56 O2 Sat by Pulse 97 98 Oximetry 10/27/16 10/27/16 12:59 14:00 Temperature Pulse Rate 78 69 Respiratory 20 20 Rate Blood Pressure 98/56 108/63 O2 Sat by Pulse 99 99 Oximetry - Reevaluation(s) Reevaluation #1: 10/27/16 13:14 Reevaluation patient reveals he is dyspneic with wheezing Medical Decision Making - Medical Decision Making I did discuss findings with patient family as well as with Dr. Xavier who did come to the emergency department patient will be admitted for evaluation and treatment of COPD exacerbation - Lab Data Result diagrams: 10/27/16 11:28 10/27/16 11:28 Lab Results 10/27/16 10/27/16 10/27/16 Range/Units 11:28 11:28 11:28 WBC 8.2 (3.8-10.6) k/uL RBC 4.01 L (4.30-5.90) m/uL Hgb 12.4 L (13.0-17.5) gm/dL Hct 38.6 L (39.0-53.0) % MCV 96.3 (80.0-100.0) fL MCH 30.8 (25.0-35.0) pg MCHC 32.0 (31.0-37.0) g/dL RDW 15.2 (11.5-15.5) % Plt Count 187 (150-450) k/uL Neutrophils % 55 % Lymphocytes % 25 % Monocytes % 11 % Eosinophils % 5 % Basophils % 1 % Neutrophils # 4.5 (1.3-7.7) k/uL Lymphocytes # 2.0 (1.0-4.8) k/uL Monocytes # 0.9 (0-1.0) k/uL Eosinophils # 0.4 (0-0.7) k/uL Basophils # 0.0 (0-0.2) k/uL PT (9.0-12.0) sec INR (<1.2) APTT (22.0-30.0) sec D-Dimer (<0.60) mg/L FEU Sodium 141 (137-145) mmol/L Potassium 4.5 (3.5-5.1) mmol/L Chloride 104 (98-107) mmol/L Carbon Dioxide 27 (22-30) mmol/L Anion Gap 10 mmol/L BUN 23 H (9-20) mg/dL Creatinine 1.40 H (0.66-1.25) mg/dL Est GFR (MDRD) Af Amer 59 (>60 ml/min/1.73 sqM) Est GFR (MDRD) Non-Af 49 (>60 ml/min/1.73 sqM) Glucose 86 (74-99) mg/dL Calcium 9.1 (8.4-10.2) mg/dL Magnesium 2.1 (1.6-2.3) mg/dL Total Bilirubin 0.4 (0.2-1.3) mg/dL AST 25 (17-59) U/L ALT 39 (21-72) U/L Alkaline Phosphatase 55 (38-126) U/L Total Creatine Kinase 62 (55-170) U/L CK-MB (CK-2) 1.0 (0.0-2.4) ng/mL CK-MB (CK-2) Rel Index 1.6 Troponin I <0.012 (0.000-0.034) ng/mL NT-Pro-B Natriuret Pep pg/mL Total Protein 6.4 (6.3-8.2) g/dL Albumin 3.6 (3.5-5.0) g/dL 10/27/16 10/27/16 Range/Units 11:28 11:28 WBC (3.8-10.6) k/uL RBC (4.30-5.90) m/uL Hgb (13.0-17.5) gm/dL Hct (39.0-53.0) % MCV (80.0-100.0) fL MCH (25.0-35.0) pg MCHC (31.0-37.0) g/dL RDW (11.5-15.5) % Plt Count (150-450) k/uL Neutrophils % % Lymphocytes % % Monocytes % % Eosinophils % % Basophils % % Neutrophils # (1.3-7.7) k/uL Lymphocytes # (1.0-4.8) k/uL Monocytes # (0-1.0) k/uL Eosinophils # (0-0.7) k/uL Basophils # (0-0.2) k/uL PT 12.4 H (9.0-12.0) sec INR 1.3 H (<1.2) APTT 28.6 (22.0-30.0) sec D-Dimer 0.44 (<0.60) mg/L FEU Sodium (137-145) mmol/L Potassium (3.5-5.1) mmol/L Chloride (98-107) mmol/L Carbon Dioxide (22-30) mmol/L Anion Gap mmol/L BUN (9-20) mg/dL Creatinine (0.66-1.25) mg/dL Est GFR (MDRD) Af Amer (>60 ml/min/1.73 sqM) Est GFR (MDRD) Non-Af (>60 ml/min/1.73 sqM) Glucose (74-99) mg/dL Calcium (8.4-10.2) mg/dL Magnesium (1.6-2.3) mg/dL Total Bilirubin (0.2-1.3) mg/dL AST (17-59) U/L ALT (21-72) U/L Alkaline Phosphatase (38-126) U/L Total Creatine Kinase (55-170) U/L CK-MB (CK-2) (0.0-2.4) ng/mL CK-MB (CK-2) Rel Index Troponin I (0.000-0.034) ng/mL NT-Pro-B Natriuret Pep 2009 pg/mL Total Protein (6.3-8.2) g/dL Albumin (3.5-5.0) g/dL - EKG Data -: EKG Interpreted by Me (Atrial fibrillation with rate 73 QRS is 92 QT since QTC of/449. [place] devia) - Radiology Data Radiology results: report reviewed (X-ray was reviewed no acute findings seen.) , image reviewed Disposition Clinical Impression: Acute exacerbation of chronic obstructive airways disease Disposition: ADMITTED IP TO THIS HOSP Condition: Stable Referrals: Sandra Allan MD [Primary Care Provider] - 1-2 days
[2016-10-27 11:47] LABS: Basophils % (A) 1 %; CH 31.6; Eosinophils # (A) 0.4 k/uL (0-0.7); Eosinophils % (A) 5 %; HCT 38.6 % (39.0-53.0); HDW 2.31; HGB 12.4 gm/dL (13.0-17.5); Luc # (Auto) 0.27; Luc % (Auto) 3; Lymphocytes % (A) 25 %; MCH 30.8 pg (25.0-35.0); MCV 96.3 fL (80.0-100.0); Mean Platelet Volume 7.4; Monocytes # (A) 0.9 k/uL (0-1.0); Monocytes % (A) 11 %; Neutrophils # (A) 4.5 k/uL (1.3-7.7); Neutrophils % (A) 55 %; RBC 4.01 m/uL (4.30-5.90); RDW 15.2 % (11.5-15.5); WBC 8.2 k/uL (3.8-10.6); WBC (Perox) 8.17
[2016-10-27 12:02] LABS: INR 1.3 (<1.2); Partial Thromboplastin Time 28.6 sec (22.0-30.0); Prothrombin Time 12.4 sec (9.0-12.0)
--- NOTE | 2016-10-27 12:02 | XR ---
EXAMINATION TYPE: XR chest 2V DATE OF EXAM: 10/27/2016 COMPARISON: 09/21/2016 HISTORY: Shortness of breath TECHNIQUE: Frontal and lateral views of the chest are obtained. FINDINGS: Scattered senescent parenchymal changes noted. Hyperinflation compatible with COPD. No evidence for infiltrate. No evidence for atelectasis. Heart size is stable. Mediastinal structures are stable and grossly unremarkable. No evidence for hilar prominence. Degenerative changes dorsal spine. IMPRESSION: 1. No evidence for acute pulmonary disease.
[2016-10-27 12:03] LABS: Calcium 9.1 mg/dL (8.4-10.2); Magnesium 2.1 mg/dL (1.6-2.3); Potassium 4.5 mmol/L (3.5-5.1); Total Bilirubin 0.4 mg/dL (0.2-1.3); Total Protein 6.4 g/dL (6.3-8.2)
[2016-10-27 12:12] LABS: Creatine Kinase 62 U/L (55-170)
[2016-10-27 12:24] LABS: Troponin I <0.012 ng/mL (0.000-0.034)
[2016-10-27] MEDS ORDERED: methylPREDNISolone SOD SUCCI 125 MG/2 ML VIAL IV STA (13:10)
[2016-10-27] MEDS ORDERED: IPRATROPIUM-ALBUTEROL 3 ML NEB INHALATION STA (13:10)
[2016-10-27] MEDS ORDERED: NITROGLYCERIN SL TABS 0.4 MG TAB SUBLINGUAL PRN (14:13)
--- NOTE | 2016-10-27 14:14 | ED ---
Medical Decision Making - Lab Data Result diagrams: 10/27/16 11:28 10/27/16 11:28 Lab Results 10/27/16 10/27/16 10/27/16 Range/Units 11:28 11:28 11:28 WBC 8.2 (3.8-10.6) k/uL RBC 4.01 L (4.30-5.90) m/uL Hgb 12.4 L (13.0-17.5) gm/dL Hct 38.6 L (39.0-53.0) % MCV 96.3 (80.0-100.0) fL MCH 30.8 (25.0-35.0) pg MCHC 32.0 (31.0-37.0) g/dL RDW 15.2 (11.5-15.5) % Plt Count 187 (150-450) k/uL Neutrophils % 55 % Lymphocytes % 25 % Monocytes % 11 % Eosinophils % 5 % Basophils % 1 % Neutrophils # 4.5 (1.3-7.7) k/uL Lymphocytes # 2.0 (1.0-4.8) k/uL Monocytes # 0.9 (0-1.0) k/uL Eosinophils # 0.4 (0-0.7) k/uL Basophils # 0.0 (0-0.2) k/uL PT (9.0-12.0) sec INR (<1.2) APTT (22.0-30.0) sec D-Dimer (<0.60) mg/L FEU Sodium 141 (137-145) mmol/L Potassium 4.5 (3.5-5.1) mmol/L Chloride 104 (98-107) mmol/L Carbon Dioxide 27 (22-30) mmol/L Anion Gap 10 mmol/L BUN 23 H (9-20) mg/dL Creatinine 1.40 H (0.66-1.25) mg/dL Est GFR (MDRD) Af Amer 59 (>60 ml/min/1.73 sqM) Est GFR (MDRD) Non-Af 49 (>60 ml/min/1.73 sqM) Glucose 86 (74-99) mg/dL Calcium 9.1 (8.4-10.2) mg/dL Magnesium 2.1 (1.6-2.3) mg/dL Total Bilirubin 0.4 (0.2-1.3) mg/dL AST 25 (17-59) U/L ALT 39 (21-72) U/L Alkaline Phosphatase 55 (38-126) U/L Total Creatine Kinase 62 (55-170) U/L CK-MB (CK-2) 1.0 (0.0-2.4) ng/mL CK-MB (CK-2) Rel Index 1.6 Troponin I <0.012 (0.000-0.034) ng/mL NT-Pro-B Natriuret Pep pg/mL Total Protein 6.4 (6.3-8.2) g/dL Albumin 3.6 (3.5-5.0) g/dL 10/27/16 10/27/16 Range/Units 11:28 11:28 WBC (3.8-10.6) k/uL RBC (4.30-5.90) m/uL Hgb (13.0-17.5) gm/dL Hct (39.0-53.0) % MCV (80.0-100.0) fL MCH (25.0-35.0) pg MCHC (31.0-37.0) g/dL RDW (11.5-15.5) % Plt Count (150-450) k/uL Neutrophils % % Lymphocytes % % Monocytes % % Eosinophils % % Basophils % % Neutrophils # (1.3-7.7) k/uL Lymphocytes # (1.0-4.8) k/uL Monocytes # (0-1.0) k/uL Eosinophils # (0-0.7) k/uL Basophils # (0-0.2) k/uL PT 12.4 H (9.0-12.0) sec INR 1.3 H (<1.2) APTT 28.6 (22.0-30.0) sec D-Dimer 0.44 (<0.60) mg/L FEU Sodium (137-145) mmol/L Potassium (3.5-5.1) mmol/L Chloride (98-107) mmol/L Carbon Dioxide (22-30) mmol/L Anion Gap mmol/L BUN (9-20) mg/dL Creatinine (0.66-1.25) mg/dL Est GFR (MDRD) Af Amer (>60 ml/min/1.73 sqM) Est GFR (MDRD) Non-Af (>60 ml/min/1.73 sqM) Glucose (74-99) mg/dL Calcium (8.4-10.2) mg/dL Magnesium (1.6-2.3) mg/dL Total Bilirubin (0.2-1.3) mg/dL AST (17-59) U/L ALT (21-72) U/L Alkaline Phosphatase (38-126) U/L Total Creatine Kinase (55-170) U/L CK-MB (CK-2) (0.0-2.4) ng/mL CK-MB (CK-2) Rel Index Troponin I (0.000-0.034) ng/mL NT-Pro-B Natriuret Pep 2010 pg/mL Total Protein (6.3-8.2) g/dL Albumin (3.5-5.0) g/dL Disposition Clinical Impression: Acute exacerbation of chronic obstructive airways disease Disposition: ADMITTED IP TO THIS HOSP Condition: Stable Referrals: Sandra Allan MD [Primary Care Provider] - 1-2 days Decision Time: 13:00
[2016-10-27] MEDS: IPRATROPIUM-ALBUTEROL 3 ML NEB INHALATION SCH ×3 (16:11→23:14)
[2016-10-27] MEDS: WARFARIN 5 MG TAB PO SCH (17:56)
[2016-10-27] MEDS: methylPREDNISolone SOD SUCCI 125 MG/2 ML VIAL IV SCH (17:56)
[2016-10-27 20:41] LABS: Glucose,Whole Blood 167 mg/dL (75-99)
[2016-10-27] MEDS: RANOLAZINE 500 MG TAB.ER.12H PO SCH (22:37)
[2016-10-27] MEDS: METOPROLOL TARTRATE 25 MG TAB PO SCH (22:37)
[2016-10-27] MEDS: QUEtiapine 25 MG TAB PO SCH (22:38)
[2016-10-27 22:41] LABS: Hemoglobin A1C 6.2 % (4.2-6.1)
[2016-10-27] MEDS ORDERED: IPRATROPIUM-ALBUTEROL 3 ML NEB INHALATION PRN (23:14)
[2016-10-28] MEDS: MELATONIN 3 MG TABLET PO PRN ×2 (00:16→21:48)
[2016-10-28] MEDS: methylPREDNISolone SOD SUCCI 125 MG/2 ML VIAL IV SCH ×4 (00:24→18:09)
[2016-10-28] MEDS: IPRATROPIUM-ALBUTEROL 3 ML NEB INHALATION SCH ×4 (07:19→19:46)
[2016-10-28] MEDS: SYMBICORT 160-4.5 MCG INHALER INHALATION SCH ×2 (07:19→19:46)
[2016-10-28 07:39] LABS: Glucose,Whole Blood 167 mg/dL (75-99)
[2016-10-28] MEDS: INSULIN LISPRO (humaLOG) 300 UNIT/3 ML VIAL SQ SCH ×4 (08:46→21:07)
[2016-10-28] MEDS: PANTOPRAZOLE 40 MG TABLET PO SCH (08:49)
[2016-10-28] MEDS: CLOPIDOGREL 75 MG TAB PO SCH (08:50)
[2016-10-28] MEDS: LISINOPRIL 2.5 MG TAB PO SCH (08:50)
[2016-10-28] MEDS: METOPROLOL TARTRATE 25 MG TAB PO SCH ×2 (08:50→21:00)
[2016-10-28] MEDS: RANOLAZINE 500 MG TAB.ER.12H PO SCH ×2 (08:50→21:01)
[2016-10-28 09:10] LABS: Basophils % (A) 0 %; CH 30.7; CHCM 32.4; Eosinophils % (A) 0 %; HCT 38.9 % (39.0-53.0); HDW 2.24; Luc # (Auto) 0.03; Luc % (Auto) 0; Lymphocytes # (A) 1.3 k/uL (1.0-4.8); Lymphocytes % (A) 9 %; MCH 31.8 pg (25.0-35.0); MCHC 33.4 g/dL (31.0-37.0); MCV 95.1 fL (80.0-100.0); Mean Platelet Volume 6.8; Monocytes # (A) 0.2 k/uL (0-1.0); Monocytes % (A) 2 %; Neutrophils # (A) 11.7 k/uL (1.3-7.7); Neutrophils % (A) 89 %; RBC 4.08 m/uL (4.30-5.90); RDW 14.3 % (11.5-15.5); WBC 13.3 k/uL (3.8-10.6); WBC (Perox) 13.24
[2016-10-28 09:11] LABS: INR 1.4 (<1.2); Prothrombin Time 14.1 sec (9.0-12.0)
[2016-10-28 09:17] LABS: Anion Gap 12 mmol/L; Blood Urea Nitrogen 24 mg/dL (9-20); Calcium 9.2 mg/dL (8.4-10.2); Carbon Dioxide 24 mmol/L (22-30); Chloride 104 mmol/L (98-107); Cholesterol 182 mg/dL (<200); Glucose 152 mg/dL (74-99); HDL Cholesterol 56 mg/dL (40-60); Non-African American GFR(MDRD) >60 (>60 ml/min/1.73 sqM); Potassium 4.5 mmol/L (3.5-5.1); Sodium 140 mmol/L (137-145)
--- NOTE | 2016-10-28 11:55 | HP ---
DATE OF SERVICE: 10/27/2016 Chief complaint is shortness of breath. HISTORY OF PRESENT ILLNESS: This 76-year-old gentleman with a past medical history of multiple medical problems including atrial fibrillation, severe dementia, was complaining of increasing shortness of breath for the past several days. The patient has exertional dyspnea. Patient also had hypertension. Patient also had atrial fibrillation. Because of increasing symptoms, patient came to [facility] and admitted for further evaluation and treatment. There is no history of fever, chills or rigors. No history of headache, loss of consciousness. PAST MEDICAL HISTORY: History of atrial fibrillation, history of CAD, history of dehydration, hypertension, change in mental status, dilated aortic root. Medications prior to admission include, home medications are: 1. Seroquel 25 mg q.h.s. 2. Nitrostat 0.4 sublingual p.r.n. 3. Melatonin 6 mg q.h.s. p.r.n. 4. Coumadin 5 mg q.h.s. 5. Ranexa 1000 mg p.o. b..d. 6. Protonix 40 mg daily. 7. Lopressor 25 mg p.o. b.i.d. 8. Zestril 2.5 mg p.o. daily. 9. Plavix 75 mg p.o. daily. Allergies are PENICILLIN. FAMILY HISTORY: History of COPD and diabetes mellitus. SOCIAL HISTORY: Previous history of smoking, no history of alcohol intake. REVIEW OF SYSTEMS: ENT: No diminished vision, diminished hearing. CARDIOVASCULAR SYSTEM: No angina, palpitations. RESPIRATORY: As mentioned earlier. GI: No nausea. : No dysuria. NERVOUS SYSTEM: No numbness or weakness. ALLERGY/IMMUNOLOGY: No asthma.. MUSCULOSKELETAL: As mentioned earlier. HEMATOLOGY: No history of anemia. ENDOCRINE: No history of diabetes or hypothyroidism. CONSTITUTIONAL: As mentioned earlier. DERMATOLOGY: Negative. RHEUMATOLOGY: Negative. PSYCHIATRY: As mentioned earlier. PHYSICAL EXAM: Patient is alert and oriented x3. The pulse is 78, blood pressure 94/54, respirations 18, temperature is 98.2, pulse ox 97% on 2 L. HEENT: Conjunctivae normal. Oral mucosa moist. NECK: No jugular venous distension. No lymph node enlargement. CARDIOVASCULAR: S1, S2, muffled. RESPIRATORY: Breath sounds diminished at the bases, a few scattered rhonchi, no crackles. Respiratory wheezing also present. ABDOMEN: Soft, nontender, no mas palpable. LEGS: No edema, no swelling. NERVOUS SYSTEM: Higher functions as mentioned, moves all 4 limbs, no focal deficits. LYMPHATICS: No lymph node enlargement in the neck or axilla. SKIN: No ulcer, rash, bleeding. Labs are WBC is 8.2, hemoglobin is 12.4, INR 1.3, creatinine is 1.40. ASSESSMENT: 1. Shortness of breath, admitted for further evaluation, possible chronic obstructive pulmonary disease acute exacerbation. 2. Increased creatinine with chronic kidney disease, stage III. 3. Anemia or chronic disease. 4. History of recent hypotension secondary to dehydration. 5. Dementia. 6. Chronic atrial fibrillation. 7. Chronic back pain. 8. History of dilated aortic root 3.8 cm. RECOMMENDATION AND DISCUSSION: In this 76-year-old gentleman admitted with multiple complex medical issues, will monitor the patient closely. Continue with the current medications and symptomatic treatment. Otherwise, at this time I would recommend continue to monitor, Pulmonary consultation, steroids, monitor closely. The prognosis guarded. Further recommendations to follow. The chest x-ray showed no evidence of CHF at this time. Home medications will be continued. A copy of the dictation will be forwarded to Dr. Allan who is the primary physician. JENIFFER
--- NOTE | 2016-10-28 12:27 | P.CNPUL ---
History of Present Illness Consult date: 10/28/16 Requesting physician: Jasen Xavier Reason for consult: other (Shortness of breath) Chief complaint: Shortness of breath History of present illness: This is a 76-year-old male patient who came in to the emergency room for increasing shortness of breath over the last few days. He did call EMS and was noted to have a blood pressure of 95/56 and had a 250 mL bolus with a repeat blood pressure of 88/60. He recently was in the emergency department for dehydration as well. Patient is known to have a history of chronic A. fib, dementia, Alzheimer's disease, CAD, hypertension and a dilated aortic root. Patient was admitted to the hospital for COPD exacerbation after emergency room workup. Pulmonary services was consults added for the patient's COPD exacerbation. Upon examination the patient's resting up in bed on room air states he does have intermittent shortness of breath with a cough and congestion. Patient states he does not use home oxygen. Patient is a poor historian. Review of Systems 14 point review of systems was completed and is negative unless on the above in the HPI. Past Medical History Past Medical History: Atrial Fibrillation, Coronary Artery Disease (CAD), Dementia Additional Past Medical History / Comment(s): Pt recently admitted to [facility] with dehydration/hypotension/ AMS. Other hx: Chronic afib, advanced dementia, low back pain, normocytic anemia., past shingelles History of Any Multi-Drug Resistant Organisms: None Reported Past Surgical History: Joint Replacement, Orthopedic Surgery Additional Past Surgical History / Comment(s): R knee surgery with pinning, R hand ring finger partial amputation, bilateral corrective eye surgery. Past Anesthesia/Blood Transfusion Reactions: No Reported Reaction Smoking Status: Former smoker - Past Family History Father History Unknown: Yes Family Medical History: COPD Additional Family Medical History / Comment(s): Father had emphysema and possibly diabetes. Mother History Unknown: Yes Additional Family Medical History / Comment(s): Mother was healthy and at the age of 72yrs. Medications and Allergies Home Medications Medication Instructions Recorded Confirmed Type Clopidogrel [Plavix] 75 mg PO DAILY 09/21/16 10/27/16 History Melatonin 6 mg PO HS PRN 09/21/16 10/27/16 History Metoprolol Tartrate [Lopressor] 25 mg PO BID 09/21/16 10/27/16 History Nitroglycerin Sl Tabs [Nitrostat] 0.4 mg SUBLINGUAL Q5M PRN 09/21/16 10/27/16 History Ranolazine [Ranexa] 1,000 mg PO BID 09/21/16 10/27/16 History Lisinopril [Zestril] 2.5 mg PO DAILY 10/05/16 10/27/16 History Warfarin Sodium [Coumadin] 5 mg PO HS 10/27/16 10/27/16 History Allergies Allergy/AdvReac Type Severity Reaction Status Date / Time Penicillins Allergy Unknown Verified 10/27/16 11:43 Childhood Physical Exam Vitals: Vital Signs Temp Pulse Pulse Resp BP BP Pulse Ox 10/28/16 11:12 74 10/28/16 11:02 72 10/28/16 07:30 80 10/28/16 07:20 76 10/28/16 07:00 96.3 F L 94 16 110/67 90 L 10/27/16 23:00 97.1 F L 102 H 16 103/63 92 L 10/27/16 20:54 80 14 10/27/16 16:20 80 14 10/27/16 16:13 98 10/27/16 16:11 80 14 10/27/16 16:00 70 14 10/27/16 15:30 96.3 F L 70 18 127/67 90 L 10/27/16 14:45 98.1 F 83 20 120/76 97 10/27/16 14:17 85 10/27/16 14:06 100 10/27/16 14:00 69 20 108/63 99 10/27/16 12:59 78 20 98/56 99 10/27/16 12:25 72 18 98/56 98 Intake and Output 10/27/16 10/28/16 10/28/16 22:59 06:59 14:59 Other: Voiding Method Toilet Toilet Incontinent Incontinent # Voids 1 1 # Bowel Movements 1 Weight 86.183 kg GENERAL EXAM: Alert, and intermittent confusion, comfortable in no apparent distress. HEAD: Normocephalic. EYES: Normal reaction of pupils, equal size. NOSE: Clear with pink turbinates. THROAT: No erythema or exudates. NECK: No masses, no JVD. CHEST: No chest wall deformity. LUNGS: Sounds noted to be equal with poor air entry. Faint expiratory wheezes noted scattered Bases diminished. CVS: S1 and S2 normal with no audible mumurs, regular rhythm. ABDOMEN: No hepatosplenomegaly, normal bowel sounds, no guarding or rigidity. EXTREMITIES: No edema noted, pedal pulses palpable. SKIN: No rashes CENTRAL NERVOUS SYSTEM: No focal deficits, tone is normal in all 4 extremities. Results - Laboratory Findings CBC and BMP: 10/28/16 07:56 10/28/16 07:56 PT/INR, D-dimer PT 14.1 sec (9.0-12.0) H 10/28/16 07:56 INR 1.4 (<1.2) H 10/28/16 07:56 D-Dimer 0.44 mg/L FEU (<0.60) 10/27/16 11:28 Abnormal lab findings: Abnormal Labs 10/27/16 10/27/16 10/27/16 11:28 11:28 11:28 WBC RBC 4.01 L Hgb 12.4 L Hct 38.6 L Neutrophils # PT 12.4 H INR 1.3 H BUN 23 H Creatinine 1.40 H Glucose POC Glucose (mg/dL) Hemoglobin A1c LDL Cholesterol, Calc 10/27/16 10/27/16 10/28/16 11:28 20:39 07:37 WBC RBC Hgb Hct Neutrophils # PT INR BUN Creatinine Glucose POC Glucose (mg/dL) 167 H 167 H Hemoglobin A1c 6.2 H LDL Cholesterol, Calc 10/28/16 10/28/16 10/28/16 07:56 07:56 07:56 WBC 13.3 H RBC 4.08 L Hgb Hct 38.9 L Neutrophils # 11.7 H PT 14.1 H INR 1.4 H BUN 24 H Creatinine Glucose 152 H POC Glucose (mg/dL) Hemoglobin A1c LDL Cholesterol, Calc 114 H - Diagnostic Findings Chest x-ray: report reviewed, image reviewed Assessment and Plan Plan: Assessment Acute exacerbation of COPD Dyspnea Chronic kidney disease stage III Anemia of chronic disease Recent hypotension secondary to dehydration History of hypertension Dementia Chronic atrial fibrillation Chronic back pain History of dilated aortic root 3.8 cm Plan Medications have been reviewed and will be continued as ordered. Antibiotics and steroids as ordered. She and encourage incentive spirometer. Continue with pulmonary hygiene, coughing and deep breathing exercises, and supportive care. Supplemental oxygen to maintain oxygen saturations of 92% or better. Continue nebulizer treatments, add budesonide to current scheduled nebulizers.. GI and DVT prophylaxis. We will continue to monitor labs/results and adjust treatment as necessary. Further recommendations pending.
[2016-10-28 12:29] LABS: Glucose,Whole Blood 169 mg/dL (75-99)
[2016-10-28] MEDS: LORazepam 2 MG/ML SYRINGE IV PRN (16:35)
[2016-10-28 17:07] LABS: Glucose,Whole Blood 125 mg/dL (75-99)
[2016-10-28] MEDS: WARFARIN 5 MG TAB PO SCH (18:09)
[2016-10-28] MEDS: LEVOFLOXACIN 500MG-D5W PMX 500 MG in DEXTROSE/WATER 1 100ML.BAG IVPB SCH (18:09)
[2016-10-28] MEDS: BUDESONIDE 0.5 MG/2 ML NEBU INHALATION SCH (19:45)
--- NOTE | 2016-10-28 20:09 | PN ---
DATE OF SERVICE: 10/28/2016 This 76-year-old gentleman who was admitted with shortness of breath and COPD, acute exacerbation, also has renal failure. The patient also had recent hypotension secondary to dehydration. The patient is being closely monitored at this time. His white count is still elevated. Patient is being treated with IV steroids. Pulmonary is also consulted. Past medical history reviewed. PHYSICAL EXAM: Patient is alert and oriented x3. Pulse is 70, blood pressure 110 /67, respiration 16, temperature 96.3, pulse ox 90% on room air. HEENT: Conjunctivae normal. Oral mucosa moist. NECK: No jugular venous distention. No thyroid enlargement. No carotid bruit. No lymph node enlargement. CARDIOVASCULAR: S1, S2 muffled. No S3. No S4. RESPIRATORY: Breath sounds diminished at the bases. A few scattered rhonchi, expiratory wheezing and crackles. ABDOMEN: Soft. Non-tender. LEGS: No edema. No swelling. NERVOUS SYSTEM: No focal deficit. LABS: WBC 13.3, hemoglobin 13. Glucose 152. ASSESSMENT: 1. Shortness of breath, possibly chronic obstructive pulmonary disease, acute exacerbation, with acute purulent tracheobronchitis. 2. Increased creatinine with chronic kidney disease, stage III. 3. Anemia of chronic disease. 4. History of recent hypotension secondary to dehydration. 5. Dementia. 6. Chronic atrial fibrillation. RECOMMENDATIONS AND DISCUSSION: I recommend to continue the current medications , continue with symptomatic treatment. Otherwise, at this time we will monitor the patient closely, continue the bronchodilators, steroids. Recommend continuing to monitor the blood sugars closely. Closely follow with Pulmonary. Guarded prognosis because of multiple complex medical issues. Further recommendations to follow. I recommend IV Levaquin on an empiric basis, also. MTDD
[2016-10-28 21:00] LABS: Glucose,Whole Blood 144 mg/dL (75-99)
[2016-10-28] MEDS: QUEtiapine 25 MG TAB PO SCH (21:00)
[2016-10-29] MEDS: methylPREDNISolone SOD SUCCI 125 MG/2 ML VIAL IV SCH ×3 (00:38→12:56)
[2016-10-29 07:33] LABS: Glucose,Whole Blood 166 mg/dL (75-99)
[2016-10-29] MEDS: SYMBICORT 160-4.5 MCG INHALER INHALATION SCH ×2 (08:14→20:07)
[2016-10-29] MEDS: BUDESONIDE 0.5 MG/2 ML NEBU INHALATION SCH ×2 (08:14→20:08)
[2016-10-29] MEDS: IPRATROPIUM-ALBUTEROL 3 ML NEB INHALATION SCH ×4 (08:15→20:08)
[2016-10-29] MEDS: LISINOPRIL 2.5 MG TAB PO SCH (08:28)
[2016-10-29] MEDS: INSULIN LISPRO (humaLOG) 300 UNIT/3 ML VIAL SQ SCH ×4 (08:28→22:18)
[2016-10-29] MEDS: CLOPIDOGREL 75 MG TAB PO SCH (08:28)
[2016-10-29] MEDS: PANTOPRAZOLE 40 MG TABLET PO SCH (08:28)
[2016-10-29] MEDS: RANOLAZINE 500 MG TAB.ER.12H PO SCH ×2 (08:29→20:12)
[2016-10-29] MEDS: METOPROLOL TARTRATE 25 MG TAB PO SCH ×2 (08:29→20:11)
[2016-10-29 09:05] LABS: Basophils % (A) 0 %; CHCM 32.8; Eosinophils % (A) 0 %; HCT 38.1 % (39.0-53.0); HDW 2.26; HGB 12.8 gm/dL (13.0-17.5); Luc # (Auto) 0.04; Luc % (Auto) 0; Lymphocytes # (A) 0.9 k/uL (1.0-4.8); Lymphocytes % (A) 4 %; MCHC 33.7 g/dL (31.0-37.0); MCV 95.1 fL (80.0-100.0); Mean Platelet Volume 7.1; Monocytes # (A) 0.4 k/uL (0-1.0); Monocytes % (A) 2 %; Neutrophils # (A) 19.5 k/uL (1.3-7.7); Neutrophils % (A) 93 %; RBC 4.01 m/uL (4.30-5.90); RDW 14.5 % (11.5-15.5); WBC 20.9 k/uL (3.8-10.6); WBC (Perox) 21.75
[2016-10-29 09:19] LABS: INR 1.7 (<1.2); Prothrombin Time 16.8 sec (9.0-12.0)
[2016-10-29 10:02] LABS: Anion Gap 11 mmol/L; Blood Urea Nitrogen 35 mg/dL (9-20); Calcium 9.2 mg/dL (8.4-10.2); Carbon Dioxide 24 mmol/L (22-30); Chloride 106 mmol/L (98-107); Glucose 122 mg/dL (74-99); Non-African American GFR(MDRD) >60 (>60 ml/min/1.73 sqM); Potassium 4.8 mmol/L (3.5-5.1); Sodium 141 mmol/L (137-145)
[2016-10-29 12:14] LABS: Glucose,Whole Blood 199 mg/dL (75-99)
--- NOTE | 2016-10-29 13:40 | P.PN ---
Subjective 10/28/16- This is a 76-year-old male patient who came in to the emergency room for increasing shortness of breath over the last few days. He did call EMS and was noted to have a blood pressure of 95/56 and had a 250 mL bolus with a repeat blood pressure of 88/60. He recently was in the emergency department for dehydration as well. Patient is known to have a history of chronic A. fib, dementia, Alzheimer's disease, CAD, hypertension and a dilated aortic root. Patient was admitted to the hospital for COPD exacerbation after emergency room workup. Pulmonary services was consults added for the patient's COPD exacerbation. Upon examination the patient's resting up in bed on room air states he does have intermittent shortness of breath with a cough and congestion. Patient states he does not use home oxygen. Patient is a poor historian. 10/29/16- patient is being seen examined and evaluated today on rounds. He continues to have shortness of breath with activity or exertion. He continues to have some cough and congestion however has not been bringing up any sputum. Patient is intermittently confused however is easily reorientated. Continues to be on IV steroids and antibiotics. Patient states he feels his breathing is better today. She has had a good appetite. Afebrile, no overnight events. Objective - Vital Signs Vital signs: Vital Signs Temp 96.4 F L 10/29/16 07:00 Pulse 68 10/29/16 11:20 Resp 18 10/29/16 07:00 BP 98/61 10/29/16 07:00 Pulse Ox 94 L 10/29/16 07:00 Intake & Output 10/28/16 10/29/16 10/29/16 18:59 06:59 18:59 Other: Voiding Method Toilet Toilet Toilet Incontinent Incontinent Incontinent # Voids 3 1 # Bowel Movements 0 - Exam GENERAL EXAM: Alert, and intermittent confusion, comfortable in no apparent distress. HEAD: Normocephalic. EYES: Normal reaction of pupils, equal size. NOSE: Clear with pink turbinates. THROAT: No erythema or exudates. NECK: No masses, no JVD. CHEST: No chest wall deformity. LUNGS: Sounds noted to be equal with poor air entry. Faint expiratory wheezes noted scattered Bases diminished. CVS: S1 and S2 normal with no audible mumurs, regular rhythm. ABDOMEN: No hepatosplenomegaly, normal bowel sounds, no guarding or rigidity. EXTREMITIES: No edema noted, pedal pulses palpable. SKIN: No rashes CENTRAL NERVOUS SYSTEM: No focal deficits, tone is normal in all 4 extremities. - Labs CBC & Chem 7: 10/29/16 08:08 10/29/16 08:08 Labs: Abnormal Lab Results - Last 24 Hours (Table) 10/28/16 10/28/16 10/29/16 Range/Units 17:03 20:59 07:31 WBC (3.8-10.6) k/uL RBC (4.30-5.90) m/uL Hgb (13.0-17.5) gm/dL Hct (39.0-53.0) % Neutrophils # (1.3-7.7) k/uL Lymphocytes # (1.0-4.8) k/uL PT (9.0-12.0) sec INR (<1.2) BUN (9-20) mg/dL Glucose (74-99) mg/dL POC Glucose (mg/dL) 125 H 144 H 166 H (75-99) mg/dL 10/29/16 10/29/16 10/29/16 Range/Units 08:08 08:08 08:08 WBC 20.9 H (3.8-10.6) k/uL RBC 4.01 L (4.30-5.90) m/uL Hgb 12.8 L (13.0-17.5) gm/dL Hct 38.1 L (39.0-53.0) % Neutrophils # 19.5 H (1.3-7.7) k/uL Lymphocytes # 0.9 L (1.0-4.8) k/uL PT 16.8 H (9.0-12.0) sec INR 1.7 H (<1.2) BUN 35 H (9-20) mg/dL Glucose 122 H (74-99) mg/dL POC Glucose (mg/dL) (75-99) mg/dL 10/29/16 Range/Units 12:07 WBC (3.8-10.6) k/uL RBC (4.30-5.90) m/uL Hgb (13.0-17.5) gm/dL Hct (39.0-53.0) % Neutrophils # (1.3-7.7) k/uL Lymphocytes # (1.0-4.8) k/uL PT (9.0-12.0) sec INR (<1.2) BUN (9-20) mg/dL Glucose (74-99) mg/dL POC Glucose (mg/dL) 199 H (75-99) mg/dL Assessment and Plan Plan: Assessment Acute exacerbation of COPD Dyspnea Chronic kidney disease stage III Anemia of chronic disease Recent hypotension secondary to dehydration History of hypertension Dementia Chronic atrial fibrillation Chronic back pain History of dilated aortic root 3.8 cm Plan Medications have been reviewed and will be continued as ordered. Antibiotics and steroids as ordered. Obtain sputum culture. Repeat chest x-ray tomorrow morning. encourage incentive spirometer. Continue with pulmonary hygiene, coughing and deep breathing exercises, and supportive care. Supplemental oxygen to maintain oxygen saturations of 92% or better. Continue nebulizer treatments, add budesonide to current scheduled nebulizers.. GI and DVT prophylaxis. We will continue to monitor labs/results and adjust treatment as necessary. Further recommendations pending.
[2016-10-29 17:20] LABS: Glucose,Whole Blood 128 mg/dL (75-99)
[2016-10-29] MEDS: LEVOFLOXACIN 500MG-D5W PMX 500 MG in DEXTROSE/WATER 1 100ML.BAG IVPB SCH (17:46)
[2016-10-29] MEDS: WARFARIN 5 MG TAB PO SCH (17:47)
[2016-10-29] MEDS: MELATONIN 3 MG TABLET PO PRN (20:10)
[2016-10-29] MEDS: QUEtiapine 25 MG TAB PO SCH (20:12)
[2016-10-29 20:38] LABS: Glucose,Whole Blood 171 mg/dL (75-99)
[2016-10-29] MEDS: methylPREDNISolone SOD SUCCI 40 MG/ML 1 ML VIAL IV SCH (22:18)
--- NOTE | 2016-10-30 06:54 | PN ---
DATE OF SERVICE: 10/29/2016 This 76-year-old gentleman admitted with COPD acute exacerbation, been closely monitored. No chest pain or palpitation. No fever. On exam, alert and oriented x3. Pulse 95, blood pressure 111/74, respirations 16, temperature 97.7, pulse ox 91% on room air. HEENT: Conjunctivae normal. NECK: No jugular venous distention. CARDIOVASCULAR: S1 and S2 muffled. RESPIRATORY: Breath sounds diminished at the bases. A few scattered rhonchi with breathing efforts increased and crackles Abdomen is soft, nontender. No mass palpable. LEGS: No edema, no swelling. NERVOUS SYSTEM: No focal deficits. LABS: WBC 20.9. INR is 1.7. ASSESSMENT: 1. Shortness of breath, possibly chronic obstructive pulmonary disease acute exacerbation with acute purulent tracheobronchitis. 2. Increased creatinine with a chronic kidney disease stage III. 3. Anemia of chronic disease. 4. History of recent hypotension with secondary dehydration. 5. Dementia. 6. Chronic atrial fibrillation. RECOMMENDATIONS AND DISCUSSION: Recommend to continue current medications, continue with symptomatic treatment. Taper the steroids. Increase ambulation. Closely follow with multiple consultants. Guarded prognosis. Further recommendations to follow. MTDD
[2016-10-30] MEDS: IPRATROPIUM-ALBUTEROL 3 ML NEB INHALATION SCH ×4 (07:11→20:36)
[2016-10-30] MEDS: BUDESONIDE 0.5 MG/2 ML NEBU INHALATION SCH ×2 (07:11→20:36)
[2016-10-30] MEDS: SYMBICORT 160-4.5 MCG INHALER INHALATION SCH ×2 (07:12→20:17)
[2016-10-30 07:47] LABS: Glucose,Whole Blood 133 mg/dL (75-99)
[2016-10-30 07:47] LABS: Basophils % (A) 0 %; CH 31.7; CHCM 32.4; Eosinophils % (A) 0 %; HCT 39.2 % (39.0-53.0); HDW 2.24; HGB 12.5 gm/dL (13.0-17.5); Luc # (Auto) 0.03; Luc % (Auto) 0; Lymphocytes # (A) 0.8 k/uL (1.0-4.8); Lymphocytes % (A) 5 %; MCH 31.3 pg (25.0-35.0); MCHC 31.8 g/dL (31.0-37.0); MCV 98.5 fL (80.0-100.0); Macrocytosis Slight; Mean Platelet Volume 7.6; Monocytes # (A) 0.5 k/uL (0-1.0); Monocytes % (A) 3 %; Neutrophils % (A) 93 %; RBC 3.99 m/uL (4.30-5.90); RDW 15.3 % (11.5-15.5); WBC 17.3 k/uL (3.8-10.6); WBC (Perox) 18.45
[2016-10-30 07:48] LABS: INR 1.9 (<1.2); Prothrombin Time 18.1 sec (9.0-12.0)
[2016-10-30 08:03] LABS: Anion Gap 11 mmol/L; Blood Urea Nitrogen 34 mg/dL (9-20); Carbon Dioxide 24 mmol/L (22-30); Chloride 106 mmol/L (98-107); Glucose 144 mg/dL (74-99); Non-African American GFR(MDRD) >60 (>60 ml/min/1.73 sqM); Potassium 4.2 mmol/L (3.5-5.1); Sodium 141 mmol/L (137-145)
[2016-10-30] MEDS: RANOLAZINE 500 MG TAB.ER.12H PO SCH ×2 (08:25→20:11)
[2016-10-30] MEDS: LISINOPRIL 2.5 MG TAB PO SCH (08:25)
[2016-10-30] MEDS: METOPROLOL TARTRATE 25 MG TAB PO SCH ×2 (08:25→20:11)
[2016-10-30] MEDS: INSULIN LISPRO (humaLOG) 300 UNIT/3 ML VIAL SQ SCH ×4 (08:26→20:28)
[2016-10-30] MEDS: methylPREDNISolone SOD SUCCI 40 MG/ML 1 ML VIAL IV SCH ×3 (08:26→23:42)
[2016-10-30] MEDS: CLOPIDOGREL 75 MG TAB PO SCH (08:26)
[2016-10-30] MEDS: PANTOPRAZOLE 40 MG TABLET PO SCH (08:26)
--- NOTE | 2016-10-30 09:12 | XR ---
EXAMINATION TYPE: XR chest 2V DATE OF EXAM: 10/30/2016 COMPARISON: 10/27/2016 HISTORY: Shortness of breath TECHNIQUE: Frontal and lateral views of the chest are obtained. FINDINGS: Pulmonary hyperinflation is present as well as a small left pleural effusion and associate d subsegmental atelectasis. There is increased anterior posterior diameter of the chest. Azygos lobe is suspected. Biapical lucency and tapering of the pulmonary vasculature is noted as well as elongati on of the cardiomediastinal silhouette, which is within normal limits of size. IMPRESSION: 1. Small left pleural effusion and left basilar atelectasis. 2. Radiographic sequela of COPD.
--- NOTE | 2016-10-30 12:18 | US ---
EXAMINATION TYPE: US chest DATE OF EXAM: 10/30/2016 COMPARISON: Chest radiograph dated 10/30/2016. CLINICAL HISTORY: bilateraly pl effusions. Bilateral pleural effusion EXAM MEASUREMENTS: Right side: no pleural effusion, NOT MARKED for possible thoracentesis outside the dept. Left side: no pleural effusion, NOT MARKED for possible thoracentesis outside the dept. Pulmonologists are able to review the images in the patient?s EMR. IMPRESSIONS: No sonographic evidence of pleural effusion.
[2016-10-30 12:28] LABS: Glucose,Whole Blood 166 mg/dL (75-99)
--- NOTE | 2016-10-30 13:02 | P.PN ---
Subjective 10/28/16- This is a 76-year-old male patient who came in to the emergency room for increasing shortness of breath over the last few days. He did call EMS and was noted to have a blood pressure of 95/56 and had a 250 mL bolus with a repeat blood pressure of 88/60. He recently was in the emergency department for dehydration as well. Patient is known to have a history of chronic A. fib, dementia, Alzheimer's disease, CAD, hypertension and a dilated aortic root. Patient was admitted to the hospital for COPD exacerbation after emergency room workup. Pulmonary services was consults added for the patient's COPD exacerbation. Upon examination the patient's resting up in bed on room air states he does have intermittent shortness of breath with a cough and congestion. Patient states he does not use home oxygen. Patient is a poor historian. 10/29/16- patient is being seen examined and evaluated today on rounds. He continues to have shortness of breath with activity or exertion. He continues to have some cough and congestion however has not been bringing up any sputum. Patient is intermittently confused however is easily reorientated. Continues to be on IV steroids and antibiotics. Patient states he feels his breathing is better today. She has had a good appetite. Afebrile, no overnight events. 10/30/16- patient is being seen examined and evaluated today on rounds. Patient is resting up in bed on room air. Continues to have some shortness of breath with activity or exertion. Occasionally has cough and congestion. Continues to be intermittently confused. Feels his breathing is better today. Chest x- ray has been reviewed, which revealed a small left pleural effusion a chest ultrasound was performed to evaluate the size of the effusion however came back negative for effusion. He is noted to have a decreased and has WBCs today. Afebrile, no overnight events. Steroids will be further decreased. Await sputum culture. Objective - Vital Signs Vital signs: Vital Signs Temp 96.7 F L 10/30/16 07:00 Pulse 80 10/30/16 11:28 Resp 18 10/30/16 08:00 BP 125/74 10/30/16 07:00 Pulse Ox 92 L 10/30/16 07:14 Intake & Output 10/29/16 10/30/16 10/30/16 18:59 06:59 18:59 Output Total 600 Balance -600 Output: Urine 600 Other: Voiding Method Toilet Toilet Toilet Incontinent Urinal Urinal Incontinent # Voids 3 1 1 # Bowel Movements 0 - Exam GENERAL EXAM: Alert, and intermittent confusion, comfortable in no apparent distress. HEAD: Normocephalic. EYES: Normal reaction of pupils, equal size. NOSE: Clear with pink turbinates. THROAT: No erythema or exudates. NECK: No masses, no JVD. CHEST: No chest wall deformity. LUNGS: Sounds noted to be equal with poor air entry. Faint expiratory wheezes noted scattered Bases diminished. CVS: S1 and S2 normal with no audible mumurs, regular rhythm. ABDOMEN: No hepatosplenomegaly, normal bowel sounds, no guarding or rigidity. EXTREMITIES: No edema noted, pedal pulses palpable. SKIN: No rashes CENTRAL NERVOUS SYSTEM: No focal deficits, tone is normal in all 4 extremities. - Labs CBC & Chem 7: 10/30/16 07:17 10/30/16 07:17 Labs: Abnormal Lab Results - Last 24 Hours (Table) 10/29/16 10/29/16 10/30/16 Range/Units 17:18 20:36 07:17 WBC 17.3 H (3.8-10.6) k/uL RBC 3.99 L (4.30-5.90) m/uL Hgb 12.5 L (13.0-17.5) gm/dL Neutrophils # 16.0 H (1.3-7.7) k/uL Lymphocytes # 0.8 L (1.0-4.8) k/uL PT (9.0-12.0) sec INR (<1.2) BUN (9-20) mg/dL Glucose (74-99) mg/dL POC Glucose (mg/dL) 128 H 171 H (75-99) mg/dL 10/30/16 10/30/16 10/30/16 Range/Units 07:17 07:17 07:45 WBC (3.8-10.6) k/uL RBC (4.30-5.90) m/uL Hgb (13.0-17.5) gm/dL Neutrophils # (1.3-7.7) k/uL Lymphocytes # (1.0-4.8) k/uL PT 18.1 H (9.0-12.0) sec INR 1.9 H (<1.2) BUN 34 H (9-20) mg/dL Glucose 144 H (74-99) mg/dL POC Glucose (mg/dL) 133 H (75-99) mg/dL 10/30/16 Range/Units 12:00 WBC (3.8-10.6) k/uL RBC (4.30-5.90) m/uL Hgb (13.0-17.5) gm/dL Neutrophils # (1.3-7.7) k/uL Lymphocytes # (1.0-4.8) k/uL PT (9.0-12.0) sec INR (<1.2) BUN (9-20) mg/dL Glucose (74-99) mg/dL POC Glucose (mg/dL) 166 H (75-99) mg/dL Assessment and Plan Plan: Assessment Acute exacerbation of COPD Dyspnea Chronic kidney disease stage III Anemia of chronic disease Recent hypotension secondary to dehydration History of hypertension Dementia Chronic atrial fibrillation Chronic back pain History of dilated aortic root 3.8 cm Plan Medications have been reviewed and will be continued as ordered. Antibiotics and steroids as ordered. Steroids have been decreased. Chest x-ray and ultrasound of the chest have been reviewed as well as labs and reports. Obtain sputum culture. Repeat chest x-ray tomorrow morning. encourage incentive spirometer. Continue with pulmonary hygiene, coughing and deep breathing exercises, and supportive care. Supplemental oxygen to maintain oxygen saturations of 92% or better. Continue nebulizer treatments, add budesonide to current scheduled nebulizers.. GI and DVT prophylaxis. We will continue to monitor labs/results and adjust treatment as necessary. Further recommendations pending. I performed an examination of the patient and discussed their management with the nurse practitioner. I have reviewed the nurse practitioner's note and agree with the documented findings and plan of care.
[2016-10-30 17:12] LABS: Glucose,Whole Blood 128 mg/dL (75-99)
[2016-10-30] MEDS: LEVOFLOXACIN 500MG-D5W PMX 500 MG in DEXTROSE/WATER 1 100ML.BAG IVPB SCH (17:27)
[2016-10-30] MEDS: WARFARIN 5 MG TAB PO SCH (17:28)
[2016-10-30] MEDS: QUEtiapine 25 MG TAB PO SCH (20:12)
[2016-10-30] MEDS: MELATONIN 3 MG TABLET PO PRN (20:27)
[2016-10-30] MEDS: LORazepam 2 MG/ML SYRINGE IV PRN (20:27)
[2016-10-30 20:29] LABS: Glucose,Whole Blood 198 mg/dL (75-99)
[2016-10-31 07:48] LABS: Glucose,Whole Blood 106 mg/dL (75-99)
[2016-10-31] MEDS: INSULIN LISPRO (humaLOG) 300 UNIT/3 ML VIAL SQ SCH ×4 (08:40→21:33)
[2016-10-31 08:41] LABS: INR 2.3 (<1.2); Prothrombin Time 22.6 sec (9.0-12.0)
[2016-10-31 08:42] LABS: Basophils % (A) 0 %; CH 30.7; CHCM 32.2; Eosinophils # (A) 0.1 k/uL (0-0.7); Eosinophils % (A) 0 %; HDW 2.28; HGB 12.6 gm/dL (13.0-17.5); Luc # (Auto) 0.12; Luc % (Auto) 1; Lymphocytes # (A) 1.5 k/uL (1.0-4.8); Lymphocytes % (A) 9 %; MCH 30.9 pg (25.0-35.0); MCHC 32.2 g/dL (31.0-37.0); MCV 95.9 fL (80.0-100.0); Monocytes % (A) 6 %; Neutrophils # (A) 12.9 k/uL (1.3-7.7); Neutrophils % (A) 83 %; RBC 4.07 m/uL (4.30-5.90); RDW 14.6 % (11.5-15.5); WBC 15.5 k/uL (3.8-10.6); WBC (Perox) 16.11
[2016-10-31] MEDS: BUDESONIDE 0.5 MG/2 ML NEBU INHALATION SCH ×3 (08:45→20:05)
[2016-10-31] MEDS: SYMBICORT 160-4.5 MCG INHALER INHALATION SCH ×3 (08:45→20:05)
[2016-10-31] MEDS: IPRATROPIUM-ALBUTEROL 3 ML NEB INHALATION SCH ×4 (08:45→20:05)
[2016-10-31 08:57] LABS: Anion Gap 7 mmol/L; Blood Urea Nitrogen 32 mg/dL (9-20); Calcium 8.8 mg/dL (8.4-10.2); Carbon Dioxide 29 mmol/L (22-30); Chloride 107 mmol/L (98-107); Glucose 98 mg/dL (74-99); Non-African American GFR(MDRD) >60 (>60 ml/min/1.73 sqM); Potassium 4.3 mmol/L (3.5-5.1); Sodium 143 mmol/L (137-145)
[2016-10-31] MEDS: PANTOPRAZOLE 40 MG TABLET PO SCH (09:08)
[2016-10-31] MEDS: RANOLAZINE 500 MG TAB.ER.12H PO SCH ×2 (09:08→21:32)
[2016-10-31] MEDS: METOPROLOL TARTRATE 25 MG TAB PO SCH ×2 (09:08→21:32)
[2016-10-31] MEDS: LISINOPRIL 2.5 MG TAB PO SCH (09:09)
[2016-10-31] MEDS: CLOPIDOGREL 75 MG TAB PO SCH (09:09)
[2016-10-31 12:11] LABS: Glucose,Whole Blood 78 mg/dL (75-99)
[2016-10-31] MEDS: methylPREDNISolone SOD SUCCI 40 MG/ML 1 ML VIAL IV SCH ×2 (12:20→21:32)
--- NOTE | 2016-10-31 12:53 | P.PN ---
Subjective 10/28/16- This is a 76-year-old male patient who came in to the emergency room for increasing shortness of breath over the last few days. He did call EMS and was noted to have a blood pressure of 95/56 and had a 250 mL bolus with a repeat blood pressure of 88/60. He recently was in the emergency department for dehydration as well. Patient is known to have a history of chronic A. fib, dementia, Alzheimer's disease, CAD, hypertension and a dilated aortic root. Patient was admitted to the hospital for COPD exacerbation after emergency room workup. Pulmonary services was consults added for the patient's COPD exacerbation. Upon examination the patient's resting up in bed on room air states he does have intermittent shortness of breath with a cough and congestion. Patient states he does not use home oxygen. Patient is a poor historian. 10/29/16- patient is being seen examined and evaluated today on rounds. He continues to have shortness of breath with activity or exertion. He continues to have some cough and congestion however has not been bringing up any sputum. Patient is intermittently confused however is easily reorientated. Continues to be on IV steroids and antibiotics. Patient states he feels his breathing is better today. She has had a good appetite. Afebrile, no overnight events. 10/30/16- patient is being seen examined and evaluated today on rounds. Patient is resting up in bed on room air. Continues to have some shortness of breath with activity or exertion. Occasionally has cough and congestion. Continues to be intermittently confused. Feels his breathing is better today. Chest x- ray has been reviewed, which revealed a small left pleural effusion a chest ultrasound was performed to evaluate the size of the effusion however came back negative for effusion. He is noted to have a decreased and has WBCs today. Afebrile, no overnight events. Steroids will be further decreased. Await sputum culture. 10/31/16- patient is seen examined and evaluated today on rounds. He continues resting up in bed on room air. He does have some shortness of breath with exertion however this has improved. He denies any cough or congestion today. Feels his breathing is back to baseline. His IV steroids have been switched over to oral. He continues on antibiotics. He is afebrile denies any further complaints. Objective - Vital Signs Vital signs: Vital Signs Temp 97.8 F 10/31/16 07:00 Pulse 84 10/31/16 07:00 Resp 22 10/31/16 07:00 BP 157/91 10/31/16 07:00 Pulse Ox 91 L 10/31/16 07:00 Intake & Output 10/30/16 10/31/16 10/31/16 18:59 06:59 18:59 Other: Voiding Method Toilet Toilet Urinal Urinal # Voids 1 1 - Exam GENERAL EXAM: Alert, and intermittent confusion, comfortable in no apparent distress. HEAD: Normocephalic. EYES: Normal reaction of pupils, equal size. NOSE: Clear with pink turbinates. THROAT: No erythema or exudates. NECK: No masses, no JVD. CHEST: No chest wall deformity. LUNGS: Sounds noted to be equal with poor air entry. Faint expiratory wheezes noted scattered Bases diminished. CVS: S1 and S2 normal with no audible mumurs, regular rhythm. ABDOMEN: No hepatosplenomegaly, normal bowel sounds, no guarding or rigidity. EXTREMITIES: No edema noted, pedal pulses palpable. SKIN: No rashes CENTRAL NERVOUS SYSTEM: No focal deficits, tone is normal in all 4 extremities. - Labs CBC & Chem 7: 10/31/16 08:19 10/31/16 08:19 Labs: Abnormal Lab Results - Last 24 Hours (Table) 10/30/16 10/30/16 10/31/16 Range/Units 17:08 20:27 07:39 WBC (3.8-10.6) k/uL RBC (4.30-5.90) m/uL Hgb (13.0-17.5) gm/dL Neutrophils # (1.3-7.7) k/uL PT (9.0-12.0) sec INR (<1.2) BUN (9-20) mg/dL POC Glucose (mg/dL) 128 H 198 H 106 H (75-99) mg/dL 10/31/16 10/31/16 10/31/16 Range/Units 08:19 08:19 08:19 WBC 15.5 H (3.8-10.6) k/uL RBC 4.07 L (4.30-5.90) m/uL Hgb 12.6 L (13.0-17.5) gm/dL Neutrophils # 12.9 H (1.3-7.7) k/uL PT 22.6 H (9.0-12.0) sec INR 2.3 H (<1.2) BUN 32 H (9-20) mg/dL POC Glucose (mg/dL) (75-99) mg/dL Assessment and Plan Plan: Assessment Acute exacerbation of COPD Dyspnea Chronic kidney disease stage III Anemia of chronic disease Recent hypotension secondary to dehydration History of hypertension Dementia Chronic atrial fibrillation Chronic back pain History of dilated aortic root 3.8 cm Plan Medications have been reviewed and will be continued as ordered. Antibiotics and steroids as ordered. Steroids have been decreased. Chest x-ray and ultrasound of the chest have been reviewed as well as labs and reports. Obtain sputum culture. encourage incentive spirometer. Continue with pulmonary hygiene, coughing and deep breathing exercises, and supportive care. Supplemental oxygen to maintain oxygen saturations of 92% or better. Continue nebulizer treatments, add budesonide to current scheduled nebulizers.. GI and DVT prophylaxis. We will continue to monitor labs/results and adjust treatment as necessary. Further recommendations pending. I performed an examination of the patient and discussed their management with the nurse practitioner. I have reviewed the nurse practitioner's note and agree with the documented findings and plan of care.
--- NOTE | 2016-10-31 14:17 | XR ---
EXAMINATION TYPE: XR chest 2V DATE OF EXAM: 10/31/2016 COMPARISON: Yesterday HISTORY: Cough TECHNIQUE: Frontal and lateral views of the chest are obtained. FINDINGS: There is no heart failure. There is coarsening of interstitial markings. Heart size is nor mal. There is no pleural effusion. Bony thorax is intact. IMPRESSION: Interstitial fibrotic changes. No heart failure. There is improved aeration of the left lung base compared to exam yesterday.
[2016-10-31] MEDS ORDERED: FUROSEMIDE 10 MG/ML 4 ML VIAL IV STA (15:29)
--- NOTE | 2016-10-31 16:20 | P.DS ---
Providers Date of admission: 10/28/16 15:01 Expected date of discharge: 10/31/16 Attending physician: Jasen Atkinson Consults: 10/27/16 21:35 Consult Physician Routine Consulting Provider: Nathan Oliver Consult Reason/Comments: sob Do you want consulting provider notified?: Yes Primary care physician: Sandra Allan Hospital Course: Final Diagnoses: 1. Acute COPD Exacerbation with acute purulent tracheobronchitis 2. Acute on chronic renal failure, stage III 3. Anemia of chronic disease 4. Dementia 5. Chronic persistent atrial fibrillation. Hospital course: This is a 76-year-old gentleman admitted with acute exacerbation COPD and multiple other medical issues. Maintained on antibiotics and nebulized bronchodilators, steroids. Evaluated by pulmonary. Chest x-ray suggestive of possible left pleural effusion, ruled out per ultrasound. Significant clinical improvement. Patient has been cleared for discharge by pulmonary. Patient is being discharged home with daughter in a stable condition with guarded prognosis. The impression and plan of care has been dictated as directed as a scribe. : I performed a H&P examination of this patient and discussed the same with the dictator. I agree with the dictator's note. Any additional findings/opinions/ etc. will be noted. Patient Condition at Discharge: Stable Plan - Discharge Summary New Discharge Prescriptions: New Budesonide-Formot 160-4.5 Mcg [Symbicort 160-4.5 Mcg Inhaler] 2 puff INHALATION RT-BID #1 inh predniSONE 10 mg PO DIRECTED #30 tab Ipratropium-Albuterol Nebulize [Duoneb 0.5 mg-3 mg/3 ml Soln] 3 ml INHALATION RT-QID #120 neb Doxycycline Monohydrate [Monodox] 100 mg PO BID #10 cap Continue Ranolazine [Ranexa] 1,000 mg PO BID Clopidogrel [Plavix] 75 mg PO DAILY Metoprolol Tartrate [Lopressor] 25 mg PO BID Melatonin 6 mg PO HS PRN PRN Reason: Insomnia Nitroglycerin Sl Tabs [Nitrostat] 0.4 mg SUBLINGUAL Q5M PRN PRN Reason: Chest Pain QUEtiapine [SEROquel] 25 mg PO HS #30 tab Pantoprazole Sodium [Protonix] 40 mg PO DAILY #30 tablet. Lisinopril [Zestril] 2.5 mg PO DAILY Warfarin Sodium [Coumadin] 5 mg PO HS #0 Discharge Medication List Clopidogrel [Plavix] 75 mg PO DAILY 09/21/16 [History] Melatonin 6 mg PO HS PRN 09/21/16 [History] Metoprolol Tartrate [Lopressor] 25 mg PO BID 09/21/16 [History] Nitroglycerin Sl Tabs [Nitrostat] 0.4 mg SUBLINGUAL Q5M PRN 09/21/16 [History] Ranolazine [Ranexa] 1,000 mg PO BID 09/21/16 [History] Pantoprazole Sodium [Protonix] 40 mg PO DAILY #30 tablet. 09/24/16 [Rx] QUEtiapine [SEROquel] 25 mg PO HS #30 tab 09/24/16 [Rx] Lisinopril [Zestril] 2.5 mg PO DAILY 10/05/16 [History] Budesonide-Formot 160-4.5 Mcg [Symbicort 160-4.5 Mcg Inhaler] 2 puff INHALATION RT-BID #1 inh 10/30/16 [Rx] predniSONE 10 mg PO DIRECTED #30 tab 10/30/16 [Rx] Doxycycline Monohydrate [Monodox] 100 mg PO BID #10 cap 10/31/16 [Rx] Ipratropium-Albuterol Nebulize [Duoneb 0.5 mg-3 mg/3 ml Soln] 3 ml INHALATION RT -QID #120 neb 10/31/16 [Rx] Warfarin Sodium [Coumadin] 5 mg PO HS #0 10/31/16 [Rx] Follow up Appointment(s)/Referral(s): Nathan Oliver MD [STAFF PHYSICIAN] - 1 Week Sandra Allan MD [Primary Care Provider] - 3 Days [facility] Visiting Nurse, [NON-STAFF] - Ambulatory/Diagnostic Orders: Prothrombin Time INR [LAB.AMB] Time Frame: 11/02/16, Location: Determined By Patient Activity/Diet/Wound Care/Special Instructions: O2 sat on room air after ambulation pending: Case management to ensure patient has nebulizer Diet: Cardiac Activity: Limited until follow up Care Plan Goals (MU): PLEASE MAKE FOLLOW UP APPOINTMENTS. OFFICES ARE CURRENTLY CLOSED.
--- NOTE | 2016-10-31 16:31 | P.PN ---
Subjective Date of service 10/30/2016. Progress note being dictated for Dr. Xavier. Interval history:This is a 76-year-old gentleman admitted with acute exacerbation COPD and multiple other medical issues. Maintained on antibiotics and nebulized bronchodilators, steroids. Evaluated by pulmonary. Chest x-ray suggestive of possible left pleural effusion, ruled out per ultrasound. Steroid tapering in progress as per pulmonary. Ambulating to and from bathroom on room air, maintaining O2 sats of 91%, patient with O2 saturation of 97-99% on admission. INR 1.9. Objective - Vital Signs Vital signs: Vital Signs Temp 97.8 F 10/31/16 07:00 Pulse 84 10/31/16 07:00 Resp 22 10/31/16 07:00 BP 157/91 10/31/16 07:00 Pulse Ox 91 L 10/31/16 07:00 Intake & Output 10/30/16 10/31/16 10/31/16 18:59 06:59 18:59 Other: Voiding Method Toilet Toilet Urinal Urinal # Voids 1 1 - Exam PHYSICAL EXAM: VITAL SIGNS: [Temperature 97.4, pulse 85,RR 16, blood pressure 116/64, O2 sat 92 % on room air.] GENERAL: [Sitting up in bed, no acute distress] HEENT: [Pupils equal conjunctiva normal. Oral mucosa moist] NECK: [Supple, no JVD] RESPIRATORY EFFORT:[ Normal, no accessory muscle use] LUNGS: [Essentially clear, bilateral bases diminished, no wheezes rhonchi or crackles] CARDIOVASCULAR[ irregular, no murmurs rubs or gallops] GI: [Abdomen soft, nontender, positive bowel sounds. No organomegaly, no guarding or rigidity] PSYCH: [Alert and oriented -3, mood and affect normal.] NEURO: [No focal deficits, moves all 4 extremities, strength and sensation grossly intact] - Labs CBC & Chem 7: 10/31/16 08:19 10/31/16 08:19 Labs: Abnormal Lab Results - Last 24 Hours (Table) 10/30/16 10/30/16 10/31/16 Range/Units 17:08 20:27 07:39 WBC (3.8-10.6) k/uL RBC (4.30-5.90) m/uL Hgb (13.0-17.5) gm/dL Neutrophils # (1.3-7.7) k/uL PT (9.0-12.0) sec INR (<1.2) BUN (9-20) mg/dL POC Glucose (mg/dL) 128 H 198 H 106 H (75-99) mg/dL 10/31/16 10/31/16 10/31/16 Range/Units 08:19 08:19 08:19 WBC 15.5 H (3.8-10.6) k/uL RBC 4.07 L (4.30-5.90) m/uL Hgb 12.6 L (13.0-17.5) gm/dL Neutrophils # 12.9 H (1.3-7.7) k/uL PT 22.6 H (9.0-12.0) sec INR 2.3 H (<1.2) BUN 32 H (9-20) mg/dL POC Glucose (mg/dL) (75-99) mg/dL Assessment and Plan Plan: 1. [ Acute COPD exacerbation with acute purulent tracheobronchitis]. 2. [ Acute hypoxic respiratory failure, secondary to the above]. 3. [ Acute on chronic renal failure, stage III. 4. [ Anemia of chronic disease]. 5. [ Dementia]. 6. [ Chronic atrial fibrillation, anticoagulated on Coumadin]. Plan: Continue on current medication regime ,monitoring and symptomatic treatment. Maintain nebulized bronchodilators, steroids. As mentioned above steroid tapering in progress per pulmonary. Patient may require oxygen at discharge, obtain O2 sat on room air after ambulation. Daily PT INR. Discharge planning in progress for tomorrow pending pulmonary clearance. The impression and plan of care has been dictated as directed. : I performed a H&P examination of this patient and discussed the same with the dictator. I agree with the dictator's note. Any additional findings/opinions/ etc. will be noted.
[2016-10-31 17:20] LABS: Glucose,Whole Blood 99 mg/dL (75-99)
[2016-10-31] MEDS: WARFARIN 5 MG TAB PO SCH (17:44)
[2016-10-31] MEDS: LEVOFLOXACIN 500 MG TAB PO SCH (17:45)
[2016-10-31 21:06] LABS: Glucose,Whole Blood 102 mg/dL (75-99)
[2016-10-31] MEDS: QUEtiapine 25 MG TAB PO SCH (21:32)
[2016-10-31] MEDS: MELATONIN 3 MG TABLET PO PRN (22:07)
[2016-11-01] MEDS: IPRATROPIUM-ALBUTEROL 3 ML NEB INHALATION SCH ×3 (07:31→16:03)
[2016-11-01] MEDS: SYMBICORT 160-4.5 MCG INHALER INHALATION SCH (07:40)
[2016-11-01] MEDS: BUDESONIDE 0.5 MG/2 ML NEBU INHALATION SCH (07:40)
[2016-11-01 07:41] LABS: Glucose,Whole Blood 92 mg/dL (75-99)
[2016-11-01] MEDS: INSULIN LISPRO (humaLOG) 300 UNIT/3 ML VIAL SQ SCH ×3 (08:08→17:20)
[2016-11-01] MEDS: METOPROLOL TARTRATE 25 MG TAB PO SCH (08:14)
[2016-11-01] MEDS: CLOPIDOGREL 75 MG TAB PO SCH (08:14)
[2016-11-01] MEDS: LISINOPRIL 2.5 MG TAB PO SCH (08:14)
[2016-11-01] MEDS: PANTOPRAZOLE 40 MG TABLET PO SCH (08:14)
[2016-11-01] MEDS: RANOLAZINE 500 MG TAB.ER.12H PO SCH (08:14)
[2016-11-01 08:40] LABS: INR 2.2 (<1.2); Prothrombin Time 21.5 sec (9.0-12.0)
[2016-11-01] MEDS: methylPREDNISolone SOD SUCCI 40 MG/ML 1 ML VIAL IV SCH (09:30)
[2016-11-01 12:14] LABS: Glucose,Whole Blood 72 mg/dL (75-99)
--- NOTE | 2016-11-01 12:30 | P.PN ---
Subjective 10/28/16- This is a 76-year-old male patient who came in to the emergency room for increasing shortness of breath over the last few days. He did call EMS and was noted to have a blood pressure of 95/56 and had a 250 mL bolus with a repeat blood pressure of 88/60. He recently was in the emergency department for dehydration as well. Patient is known to have a history of chronic A. fib, dementia, Alzheimer's disease, CAD, hypertension and a dilated aortic root. Patient was admitted to the hospital for COPD exacerbation after emergency room workup. Pulmonary services was consults added for the patient's COPD exacerbation. Upon examination the patient's resting up in bed on room air states he does have intermittent shortness of breath with a cough and congestion. Patient states he does not use home oxygen. Patient is a poor historian. 10/29/16- patient is being seen examined and evaluated today on rounds. He continues to have shortness of breath with activity or exertion. He continues to have some cough and congestion however has not been bringing up any sputum. Patient is intermittently confused however is easily reorientated. Continues to be on IV steroids and antibiotics. Patient states he feels his breathing is better today. She has had a good appetite. Afebrile, no overnight events. 10/30/16- patient is being seen examined and evaluated today on rounds. Patient is resting up in bed on room air. Continues to have some shortness of breath with activity or exertion. Occasionally has cough and congestion. Continues to be intermittently confused. Feels his breathing is better today. Chest x- ray has been reviewed, which revealed a small left pleural effusion a chest ultrasound was performed to evaluate the size of the effusion however came back negative for effusion. He is noted to have a decreased and has WBCs today. Afebrile, no overnight events. Steroids will be further decreased. Await sputum culture. 10/31/16- patient is seen examined and evaluated today on rounds. He continues resting up in bed on room air. He does have some shortness of breath with exertion however this has improved. He denies any cough or congestion today. Feels his breathing is back to baseline. His IV steroids have been switched over to oral. He continues on antibiotics. He is afebrile denies any further complaints. 11/01/16- patient is seen and evaluated and examined today on rounds. He was scheduled to be discharged yesterday however it was noted that he had some marginal desaturations possibly with exertion. Therefore his discharge was held for further evaluation. Today the patient is resting up in bed on room air he has been holding his oxygen saturations while ambulating as well. Does have some intermittent shortness of breath with exertion however it has improved since yesterday. He does feel his breathing is at baseline. He is agreeable to use nebulizer treatments upon discharge. Objective - Vital Signs Vital signs: Vital Signs Temp 97.8 F 11/01/16 07:00 Pulse 88 11/01/16 11:26 Resp 20 11/01/16 07:00 BP 107/47 11/01/16 07:00 Pulse Ox 93 L 11/01/16 07:00 Intake & Output 10/31/16 11/01/16 11/01/16 18:59 06:59 18:59 Intake Total 0 Balance 0 Intake: Intake, IV Titration 0 Amount Levofloxacin 500Mg-D5w 0 Pmx 500 mg In Dextrose/ Water 1 100ml.bag @ 100 mls/hr IVPB Q24H [facility] Rx#: [id number] Other: # Voids 1 - Exam GENERAL EXAM: Alert, and intermittent confusion, comfortable in no apparent distress. HEAD: Normocephalic. EYES: Normal reaction of pupils, equal size. NOSE: Clear with pink turbinates. THROAT: No erythema or exudates. NECK: No masses, no JVD. CHEST: No chest wall deformity. LUNGS: Sounds noted to be equal with poor air entry. Faint expiratory wheezes noted scattered Bases diminished. CVS: S1 and S2 normal with no audible mumurs, regular rhythm. ABDOMEN: No hepatosplenomegaly, normal bowel sounds, no guarding or rigidity. EXTREMITIES: No edema noted, pedal pulses palpable. SKIN: No rashes CENTRAL NERVOUS SYSTEM: No focal deficits, tone is normal in all 4 extremities. - Labs CBC & Chem 7: 10/31/16 08:19 10/31/16 08:19 Labs: Abnormal Lab Results - Last 24 Hours (Table) 10/31/16 11/01/16 11/01/16 Range/Units 20:58 07:49 12:09 PT 21.5 H (9.0-12.0) sec INR 2.2 H (<1.2) POC Glucose (mg/dL) 102 H 72 L (75-99) mg/dL Assessment and Plan Plan: Assessment Acute exacerbation of COPD Dyspnea Chronic kidney disease stage III Anemia of chronic disease Recent hypotension secondary to dehydration History of hypertension Dementia Chronic atrial fibrillation Chronic back pain History of dilated aortic root 3.8 cm Plan Patient can be cleared from a pulmonary standpoint to be discharged. Patient will require nebulizer treatments in the outpatient setting. Medications have been reviewed and will be continued as ordered. Antibiotics and steroids as ordered. Steroids have been decreased. Chest x-ray and ultrasound of the chest have been reviewed as well as labs and reports. Obtain sputum culture. encourage incentive spirometer. Continue with pulmonary hygiene, coughing and deep breathing exercises, and supportive care. Supplemental oxygen to maintain oxygen saturations of 92% or better. Continue nebulizer treatments, add budesonide to current scheduled nebulizers.. GI and DVT prophylaxis. We will continue to monitor labs/results and adjust treatment as necessary. Further recommendations pending. I performed an examination of the patient and discussed their management with the nurse practitioner. I have reviewed the nurse practitioner's note and agree with the documented findings and plan of care.
[2016-11-01 15:37] VITALS: BP 82/42; RESP 16; TEMP 97.6
[2016-11-01 16:06] VITALS: PULSE 90
[2016-11-01] MEDS: WARFARIN 5 MG TAB PO SCH (17:20)
[2016-11-01] MEDS: LEVOFLOXACIN 500 MG TAB PO SCH (17:20)
--- NOTE | 2016-11-01 19:44 | P.DS ---
Providers Date of admission: 10/28/16 15:01 Attending physician: Jasen Xavier Consults: 10/27/16 21:35 Consult Physician Routine Consulting Provider: Nathan Oliver Consult Reason/Comments: sob Do you want consulting provider notified?: Yes Primary care physician: Sandra Allan [facility] Hospital Course: Primary care physician: Sandra Allan [facility] Hospital Course: Final Diagnoses: 1. Acute COPD Exacerbation with acute purulent tracheobronchitis 2. Acute on chronic renal failure, stage III 3. Anemia of chronic disease 4. Dementia 5. Chronic persistent atrial fibrillation. Hospital course: This is a 76-year-old gentleman admitted with acute exacerbation COPD and multiple other medical issues. Maintained on antibiotics and nebulized bronchodilators, steroids. Evaluated by pulmonary. Chest x-ray suggestive of possible left pleural effusion, ruled out per ultrasound. Significant clinical improvement. get up and go test with o2 sats wnl dc home SN[facility] Patient Condition at Discharge: Stable Plan - Discharge Summary New Discharge Prescriptions: New Budesonide-Formot 160-4.5 Mcg [Symbicort 160-4.5 Mcg Inhaler] 2 puff INHALATION RT-BID #1 inh predniSONE 10 mg PO DIRECTED #30 tab Ipratropium-Albuterol Nebulize [Duoneb 0.5 mg-3 mg/3 ml Soln] 3 ml INHALATION RT-QID #120 neb Doxycycline Monohydrate [Monodox] 100 mg PO BID #10 cap Continue Ranolazine [Ranexa] 1,000 mg PO BID Clopidogrel [Plavix] 75 mg PO DAILY Metoprolol Tartrate [Lopressor] 25 mg PO BID Melatonin 6 mg PO HS PRN PRN Reason: Insomnia Nitroglycerin Sl Tabs [Nitrostat] 0.4 mg SUBLINGUAL Q5M PRN PRN Reason: Chest Pain QUEtiapine [SEROquel] 25 mg PO HS #30 tab Pantoprazole Sodium [Protonix] 40 mg PO DAILY #30 tablet. Lisinopril [Zestril] 2.5 mg PO DAILY Warfarin Sodium [Coumadin] 5 mg PO HS #0 Discharge Medication List Clopidogrel [Plavix] 75 mg PO DAILY 09/21/16 [History] Melatonin 6 mg PO HS PRN 09/21/16 [History] Metoprolol Tartrate [Lopressor] 25 mg PO BID 09/21/16 [History] Nitroglycerin Sl Tabs [Nitrostat] 0.4 mg SUBLINGUAL Q5M PRN 09/21/16 [History] Ranolazine [Ranexa] 1,000 mg PO BID 09/21/16 [History] Pantoprazole Sodium [Protonix] 40 mg PO DAILY #30 tablet. 09/24/16 [Rx] QUEtiapine [SEROquel] 25 mg PO HS #30 tab 09/24/16 [Rx] Lisinopril [Zestril] 2.5 mg PO DAILY 10/05/16 [History] Budesonide-Formot 160-4.5 Mcg [Symbicort 160-4.5 Mcg Inhaler] 2 puff INHALATION RT-BID #1 inh 10/30/16 [Rx] predniSONE 10 mg PO DIRECTED #30 tab 10/30/16 [Rx] Doxycycline Monohydrate [Monodox] 100 mg PO BID #10 cap 10/31/16 [Rx] Ipratropium-Albuterol Nebulize [Duoneb 0.5 mg-3 mg/3 ml Soln] 3 ml INHALATION RT -QID #120 neb 10/31/16 [Rx] Warfarin Sodium [Coumadin] 5 mg PO HS #0 10/31/16 [Rx] Follow up Appointment(s)/Referral(s): Nathan Oliver MD [STAFF PHYSICIAN] - 1 Week Sandra Allan MD [Primary Care Provider] - 3 Days [facility], [NON-STAFF] - Ambulatory/Diagnostic Orders: Prothrombin Time INR [LAB.AMB] Time Frame: 11/02/16, Location: Determined By Patient Activity/Diet/Wound Care/Special Instructions: Diet: Cardiac Activity: Limited until follow up Care Plan Goals (MU): PLEASE MAKE FOLLOW UP APPOINTMENTS. OFFICES ARE CURRENTLY CLOSED. Discharge Disposition: HOME WITH HOME HEALTH SERVICES
[2016-11-02] MEDS ORDERED: predniSONE 20 MG TAB PO SCH (09:00)
== END 2016-11-01 17:25 | disposition home health service (06) | DRG 191 ==
LOC: EC 11:04 → 4MS4W 14:11 → OBSVTOIN 10-28 15:01
PROVIDERS: ADMIT Hospitalist; ATTEND Hospitalist
DX: J44.0 Chronic obstructive pulmonary disease with (acute) lower respiratory infection (principal); I48.1 Persistent atrial fibrillation; N17.9 Acute kidney failure, unspecified; G30.9 Alzheimer's disease, unspecified; F02.80 Dementia in other diseases classified elsewhere, unspecified severity, without behavioral disturbance, psychotic disturbance, mood disturbance, and anxiety; J44.1 Chronic obstructive pulmonary disease with (acute) exacerbation; D63.8 Anemia in other chronic diseases classified elsewhere; I48.2 Chronic atrial fibrillation; G89.29 Other chronic pain; I12.9 Hypertensive chronic kidney disease with stage 1 through stage 4 chronic kidney disease, or unspecified chronic kidney disease; I25.10 Atherosclerotic heart disease of native coronary artery without angina pectoris; N18.3 Chronic kidney disease, stage 3 (moderate); Z79.01 Long term (current) use of anticoagulants; Z79.02 Long term (current) use of antithrombotics/antiplatelets; Z79.52 Long term (current) use of systemic steroids; Z79.899 Other long term (current) drug therapy; Z82.5 Family history of asthma and other chronic lower respiratory diseases; Z83.3 Family history of diabetes mellitus; J20.9 Acute bronchitis, unspecified; Z87.891 Personal history of nicotine dependence; Z88.0 Allergy status to penicillin
CPT/HCPCS: 36415; 71020; 76604; 80048; 80053; 80061; 82550; 82553; 83036; 83735; 83880; 84484; 85025; 85379; 85610; 85730; 93005; 94640; 94760; 96361; 96375; 99285

== ENCOUNTER 2016-12-23 23:05 | Inpatient (IN) | payer MEDICARE, BC ==
[2016-12-23 23:16] LABS: Glucose,Whole Blood 110 mg/dL (75-99)
[2016-12-23] MEDS ORDERED: SODIUM CHLORIDE 0.9% 1,000 ML IV STA (23:40)
[2016-12-23] MEDS ORDERED: SODIUM CHLORIDE 0.9% 500 ML IV STA (23:40)
--- NOTE | 2016-12-23 23:58 | ED ---
General Adult HPI - General Chief complaint: Altered Mental Status Stated complaint: syncope Time Seen by Provider: 12/23/16 23:07 Source: EMS, RN notes reviewed, old records reviewed Mode of arrival: EMS Limitations: altered mental status - History of Present Illness Initial comments: This is a 68-year-old male ER for evaluation of syncopal versus seizure like activity. Patient has history of similar event before. 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 Patient has ER visits and hospitalizations prior unsure of causer diagnosis. Patient is unable to give accurate story, unable to answer questions regarding how he feels. Patient's family states patient had an episode of syncope became very pale diaphoretic and thought he did lose his possibly return to keep him awake. Lasted for about a minute that he was very confused and then EMS arrived and brings patient to emergency room. Patient is currently awake and alert but is all baseline mental state - Related Data Home Medications Medication Instructions Recorded Confirmed Clopidogrel [Plavix] 75 mg PO DAILY 09/21/16 12/23/16 Metoprolol Tartrate [Lopressor] 25 mg PO BID 09/21/16 12/23/16 Nitroglycerin Sl Tabs [Nitrostat] 0.4 mg SUBLINGUAL Q5M PRN 09/21/16 12/23/16 Ranolazine [Ranexa] 1,000 mg PO BID 09/21/16 12/23/16 Lisinopril [Zestril] 2.5 mg PO DAILY 10/05/16 12/23/16 Albuterol Nebulized [Ventolin 2.5 mg INHALATION RT-QID PRN 12/23/16 12/23/16 Nebulized] Melatonin 10 mg PO HS 12/23/16 12/23/16 Previous Rx's Medication Instructions Recorded Pantoprazole Sodium [Protonix] 40 mg PO DAILY #30 tablet. 09/24/16 QUEtiapine [SEROquel] 25 mg PO HS #30 tab 09/24/16 Warfarin Sodium [Coumadin] 5 mg PO HS #0 10/31/16 Allergies Allergy/AdvReac Type Severity Reaction Status Date / Time Penicillins Allergy Unknown Verified 12/24/16 02:05 Childhood Review of Systems ROS Statement: Those systems with pertinent positive or pertinent negative responses have been documented in the HPI. ROS Other: All systems not noted in ROS Statement are negative. Past Medical History Past Medical History: Atrial Fibrillation, Coronary Artery Disease (CAD), Dementia Additional Past Medical History / Comment(s): Pt recently admitted to [facility] with dehydration/hypotension/ AMS. Other hx: Chronic afib, advanced dementia, low back pain, normocytic anemia., past shingelles History of Any Multi-Drug Resistant Organisms: None Reported Past Surgical History: Joint Replacement, Orthopedic Surgery Additional Past Surgical History / Comment(s): R knee surgery with pinning, R hand ring finger partial amputation, bilateral corrective eye surgery. Past Anesthesia/Blood Transfusion Reactions: No Reported Reaction Past Psychological History: No Psychological Hx Reported Smoking Status: Former smoker Past Alcohol Use History: None Reported Past Drug Use History: None Reported - Past Family History Father History Unknown: Yes Family Medical History: COPD Additional Family Medical History / Comment(s): Father had emphysema and possibly diabetes. Mother History Unknown: Yes Additional Family Medical History / Comment(s): Mother was healthy and at the age of 72yrs. General Exam Limitations: altered mental status General appearance: alert, in no apparent distress Head exam: Present: atraumatic, normocephalic, normal inspection Eye exam: Present: normal appearance, PERRL, EOMI. Absent: scleral icterus, conjunctival injection, periorbital swelling ENT exam: Present: normal exam, mucous membranes moist Neck exam: Present: normal inspection. Absent: tenderness, meningismus, lymphadenopathy Respiratory exam: Present: normal lung sounds bilaterally. Absent: respiratory distress, wheezes, rales, rhonchi, stridor Cardiovascular Exam: Present: regular rate, normal rhythm, normal heart sounds. Absent: systolic murmur, diastolic murmur, rubs, gallop, clicks GI/Abdominal exam: Present: soft, normal bowel sounds. Absent: distended, tenderness, guarding, rebound, rigid Extremities exam: Present: normal inspection, full ROM, normal capillary refill. Absent: tenderness, pedal edema, joint swelling, calf tenderness Back exam: Present: normal inspection Neurological exam: Present: alert, oriented X3, CN II-XII intact Psychiatric exam: Present: normal affect, normal mood Skin exam: Present: warm, dry, intact, normal color. Absent: rash Course Vital Signs 12/23/16 12/24/16 12/24/16 23:08 00:20 01:08 Temperature 95.6 F L Pulse Rate 63 80 84 Respiratory 22 18 Rate Blood Pressure 101/55 107/57 O2 Sat by Pulse 94 L 94 L 96 Oximetry 12/24/16 01:41 Temperature 96.5 F L Pulse Rate 108 H Respiratory 18 Rate Blood Pressure 101/62 O2 Sat by Pulse 96 Oximetry - Reevaluation(s) Reevaluation #1: 12/24/16 02:07 Patient continues to tremor like activity and right lower extremity 12/24/16 02:08 Patient is without syncopal activity Reevaluation #2: 12/24/16 02:08 Spoke with patient's family regarding patient's condition, questions are answered Reevaluation #3: 12/24/16 02:09 Regarding patient's medical history is reviewed thoroughly, including prior ER visit for similar complaints EKG Findings - EKG Comments: EKG Findings:: EKG shows atrial fibrillation rate of 65, QRS 84, QTc 463 Medical Decision Making - Medical Decision Making 76 male TEF reevaluation of syncopal near syncopal and unresponsive event. Patient will be admitted. Neuro and cardiology evaluation regarding possible causes of syncope - Lab Data Result diagrams: 12/23/16 23:20 12/23/16 23:20 Lab Results 12/23/16 12/23/16 12/23/16 Range/Units 23:14 23:20 23:20 WBC 7.0 (3.8-10.6) k/uL RBC 3.87 L (4.30-5.90) m/uL Hgb 12.1 L (13.0-17.5) gm/dL Hct 38.4 L (39.0-53.0) % MCV 99.3 (80.0-100.0) fL MCH 31.3 (25.0-35.0) pg MCHC 31.5 (31.0-37.0) g/dL RDW 15.2 (11.5-15.5) % Plt Count 200 (150-450) k/uL Neutrophils % 59 % Lymphocytes % 25 % Monocytes % 8 % Eosinophils % 7 % Basophils % 1 % Neutrophils # 4.1 (1.3-7.7) k/uL Lymphocytes # 1.7 (1.0-4.8) k/uL Monocytes # 0.6 (0-1.0) k/uL Eosinophils # 0.5 (0-0.7) k/uL Basophils # 0.0 (0-0.2) k/uL Macrocytosis Slight PT (9.0-12.0) sec INR (<1.2) APTT (22.0-30.0) sec Sodium (137-145) mmol/L Potassium (3.5-5.1) mmol/L Chloride (98-107) mmol/L Carbon Dioxide (22-30) mmol/L Anion Gap mmol/L BUN (9-20) mg/dL Creatinine (0.66-1.25) mg/dL Est GFR (MDRD) Af Amer (>60 ml/min/1.73 sqM) Est GFR (MDRD) Non-Af (>60 ml/min/1.73 sqM) Glucose (74-99) mg/dL POC Glucose (mg/dL) 110 H (75-99) mg/dL POC Glu Audio Production Engineer ID So, Marci Calcium (8.4-10.2) mg/dL Phosphorus (2.5-4.5) mg/dL Magnesium (1.6-2.3) mg/dL Total Bilirubin (0.2-1.3) mg/dL AST (17-59) U/L ALT (21-72) U/L Alkaline Phosphatase (38-126) U/L Total Creatine Kinase 83 (55-170) U/L CK-MB (CK-2) 1.5 (0.0-2.4) ng/mL CK-MB (CK-2) Rel Index 1.8 Troponin I <0.012 (0.000-0.034) ng/mL Total Protein (6.3-8.2) g/dL Albumin (3.5-5.0) g/dL 12/23/16 12/23/16 Range/Units 23:20 23:20 WBC (3.8-10.6) k/uL RBC (4.30-5.90) m/uL Hgb (13.0-17.5) gm/dL Hct (39.0-53.0) % MCV (80.0-100.0) fL MCH (25.0-35.0) pg MCHC (31.0-37.0) g/dL RDW (11.5-15.5) % Plt Count (150-450) k/uL Neutrophils % % Lymphocytes % % Monocytes % % Eosinophils % % Basophils % % Neutrophils # (1.3-7.7) k/uL Lymphocytes # (1.0-4.8) k/uL Monocytes # (0-1.0) k/uL Eosinophils # (0-0.7) k/uL Basophils # (0-0.2) k/uL Macrocytosis PT 18.8 H (9.0-12.0) sec INR 1.9 H (<1.2) APTT 30.3 H (22.0-30.0) sec Sodium 138 (137-145) mmol/L Potassium 4.6 (3.5-5.1) mmol/L Chloride 105 (98-107) mmol/L Carbon Dioxide 23 (22-30) mmol/L Anion Gap 10 mmol/L BUN 27 H (9-20) mg/dL Creatinine 1.10 (0.66-1.25) mg/dL Est GFR (MDRD) Af Amer >60 (>60 ml/min/1.73 sqM) Est GFR (MDRD) Non-Af >60 (>60 ml/min/1.73 sqM) Glucose 108 H (74-99) mg/dL POC Glucose (mg/dL) (75-99) mg/dL POC Glu Audio Production Engineer ID Calcium 8.7 (8.4-10.2) mg/dL Phosphorus 3.7 (2.5-4.5) mg/dL Magnesium 1.8 (1.6-2.3) mg/dL Total Bilirubin 0.4 (0.2-1.3) mg/dL AST 20 (17-59) U/L ALT 25 (21-72) U/L Alkaline Phosphatase 47 (38-126) U/L Total Creatine Kinase (55-170) U/L CK-MB (CK-2) (0.0-2.4) ng/mL CK-MB (CK-2) Rel Index Troponin I (0.000-0.034) ng/mL Total Protein 5.9 L (6.3-8.2) g/dL Albumin 3.2 L (3.5-5.0) g/dL - Radiology Data Radiology results: report reviewed (Chest x-ray is negative for acute disease, CT brain is negative for acute disease), image reviewed Disposition Clinical Impression: Altered mental status, Dehydration, Syncope, Arrhythmia, Tremor Disposition: ADMITTED IP TO THIS [facility] Condition: Fair Referrals: Sandra Allan MD [Primary Care Provider] - 1-2 days
[2016-12-24 00:06] LABS: Basophils % (A) 1 %; CH 32.1; CHCM 32.6; Eosinophils # (A) 0.5 k/uL (0-0.7); Eosinophils % (A) 7 %; HCT 38.4 % (39.0-53.0); HDW 2.19; HGB 12.1 gm/dL (13.0-17.5); Luc # (Auto) 0.12; Luc % (Auto) 2; Lymphocytes # (A) 1.7 k/uL (1.0-4.8); Lymphocytes % (A) 25 %; MCH 31.3 pg (25.0-35.0); MCHC 31.5 g/dL (31.0-37.0); MCV 99.3 fL (80.0-100.0); Macrocytosis Slight; Mean Platelet Volume 7.8; Monocytes # (A) 0.6 k/uL (0-1.0); Monocytes % (A) 8 %; Neutrophils # (A) 4.1 k/uL (1.3-7.7); Neutrophils % (A) 59 %; RBC 3.87 m/uL (4.30-5.90); RDW 15.2 % (11.5-15.5); WBC (Perox) 7.25
[2016-12-24 00:14] LABS: INR 1.9 (<1.2); Partial Thromboplastin Time 30.3 sec (22.0-30.0); Prothrombin Time 18.8 sec (9.0-12.0)
[2016-12-24 00:17] LABS: ALT 25 U/L (21-72); AST 20 U/L (17-59); Alkaline Phosphatase 47 U/L (38-126); Anion Gap 10 mmol/L; Blood Urea Nitrogen 27 mg/dL (9-20); Calcium 8.7 mg/dL (8.4-10.2); Carbon Dioxide 23 mmol/L (22-30); Chloride 105 mmol/L (98-107); Glucose 108 mg/dL (74-99); Magnesium 1.8 mg/dL (1.6-2.3); Non-African American GFR(MDRD) >60 (>60 ml/min/1.73 sqM); Phosphorus 3.7 mg/dL (2.5-4.5); Potassium 4.6 mmol/L (3.5-5.1); Sodium 138 mmol/L (137-145); Total Bilirubin 0.4 mg/dL (0.2-1.3); Total Protein 5.9 g/dL (6.3-8.2)
[2016-12-24 00:26] LABS: Creatine Kinase 83 U/L (55-170)
[2016-12-24 00:38] LABS: Creatine Kinase MB 1.5 ng/mL (0.0-2.4); Troponin I <0.012 ng/mL (0.000-0.034)
--- NOTE | 2016-12-24 01:10 | CT ---
EXAMINATION TYPE: CT brain wo con DATE OF EXAM: 12/24/2016 COMPARISON: NONE HISTORY: weakness, hypotension, dementia CT DLP: 1126.50 mGycm Automated exposure control for dose reduction was used. FINDINGS: There is cerebral cortical atrophy. There is mild hypodensity in the periventricular white matter. Th ere is mild enlargement of the ventricles. There is no mass effect nor midline shift. There is no sig n of intracranial hemorrhage. The calvarium is intact. There is some mucosal thickening in the ethmoi d sinuses. There is similar change in the frontal sinuses. There is mucosal thickening in right maxil luis sinus. IMPRESSION: CEREBRAL ATROPHY AND CHRONIC SMALL VESSEL ISCHEMIA. NORMAL PRESSURE TYPE HYDROCEPHALUS. SINUSITIS.
--- NOTE | 2016-12-24 01:12 | XR ---
EXAMINATION TYPE: XR chest 2V DATE OF EXAM: 12/24/2016 COMPARISON: 10/31/2016 HISTORY: Weakness TECHNIQUE: Frontal and lateral views of the chest are obtained. FINDINGS: Heart appears enlarged. There is mild pulmonary vascular congestion. There are chest leads . There is slight blunting of costophrenic angles. Thoracic aorta is atheromatous. There are chest le ads. IMPRESSION: There is evidence of mild heart failure and small pleural effusions. Chest x-ray is wors e than last exam.
[2016-12-24] MEDS ORDERED: ASPIRIN 81 MG PO STA (02:00)
[2016-12-24] MEDS ORDERED: NITROGLYCERIN SL TABS 0.4 MG TAB SUBLINGUAL PRN (02:00)
[2016-12-24 03:23] VITALS: BMI 26.9
[2016-12-24] MEDS: ALPRAZolam 0.25 MG TAB PO PRN (04:41)
[2016-12-24] MEDS ORDERED: ENOXAPARIN 40 MG/0.4 ML SYRINGE SQ SCH (09:00)
--- NOTE | 2016-12-24 10:39 | P.CRDCN ---
History of Present Illness Consult date: 12/24/16 Requesting physician: Jasen Xavier Consult reason: sycope Chief complaint: Syncope History of present illness: This is a 76-year-old gentleman with history of chronic persistent atrial fibrillation, advanced dementia, most of the history was taken from the medical record. Patient was brought to the emergency center via EMS, apparently the daughter was present at the time of his admission and was answering most of the questions because the patient is quite confused. According to the emergency room patient had an episode of syncope and became extremely pale and diaphoretic, symptoms lasted for approximately 1 minute in duration. EKG on admission here showed atrial fibrillation with a controlled ventricular response. S2 x-ray revealed evidence of mild congestive heart failure and small bilateral pleural effusions. At scan of the brain was performed which revealed cerebral atrophy and chronic small vessel ischemia. Blood pressure on admission 102/56 heart rate in the 60s 94% on room air. White blood cell count 7.0, hemoglobin 12.1, platelet count 200. INR 1.9, potassium 4.6, BUN 27, creatinine 1.1. Magnesium 1.8. Troponin 0.012. Past Medical History Past Medical History: Atrial Fibrillation, Coronary Artery Disease (CAD), Dementia Additional Past Medical History / Comment(s): Pt recently admitted to [facility] with dehydration/hypotension/ AMS. Other hx: Chronic afib, advanced dementia, low back pain, normocytic anemia., past shingelles History of Any Multi-Drug Resistant Organisms: None Reported Past Surgical History: Joint Replacement, Orthopedic Surgery Additional Past Surgical History / Comment(s): R knee surgery with pinning, R hand ring finger partial amputation, bilateral corrective eye surgery. Past Anesthesia/Blood Transfusion Reactions: No Reported Reaction Past Psychological History: No Psychological Hx Reported Additional Psychological History / Comment(s): Pt's Danay haley is his roofing laborer due to his dementia and he stays with her during the day and sometimes all night. Pt's is of sound mind but has physical limitations so a 2nd sudha is her roofing laborer. Pt's daughter, Danay states she was trying to set up some home care-she states pt needs 24 hour supervision at this time. Pt's Danay haley drives him to appts. Smoking Status: Former smoker Past Alcohol Use History: None Reported Additional Past Alcohol Use History / Comment(s): Pt started smoking as a teen and quit in 1996 Past Drug Use History: None Reported - Past Family History Father History Unknown: Yes Family Medical History: COPD Additional Family Medical History / Comment(s): Father had emphysema and possibly diabetes. Mother History Unknown: Yes Additional Family Medical History / Comment(s): Mother was healthy and at the age of 72yrs. Medications and Allergies Home Medications Medication Instructions Recorded Confirmed Type Clopidogrel [Plavix] 75 mg PO DAILY 09/21/16 12/23/16 History Metoprolol Tartrate [Lopressor] 25 mg PO BID 09/21/16 12/23/16 History Nitroglycerin Sl Tabs [Nitrostat] 0.4 mg SUBLINGUAL Q5M PRN 09/21/16 12/23/16 History Ranolazine [Ranexa] 1,000 mg PO BID 09/21/16 12/23/16 History Pantoprazole Sodium [Protonix] 40 mg PO DAILY #30 tablet. 09/24/16 12/23/16 Rx QUEtiapine [SEROquel] 25 mg PO HS #30 tab 09/24/16 12/23/16 Rx Lisinopril [Zestril] 2.5 mg PO DAILY 10/05/16 12/23/16 History Warfarin Sodium [Coumadin] 5 mg PO HS #0 10/31/16 12/23/16 Rx Albuterol Nebulized [Ventolin 2.5 mg INHALATION RT-QID PRN 12/23/16 12/23/16 History Nebulized] Melatonin 10 mg PO HS 12/23/16 12/23/16 History Allergies Allergy/AdvReac Type Severity Reaction Status Date / Time Penicillins Allergy Unknown Verified 12/24/16 02:05 Childhood Physical Exam Vitals: Vital Signs Temp Pulse Pulse Resp BP BP Pulse Ox 12/24/16 08:00 96.8 F L 92 16 122/59 94 L 12/24/16 02:35 96.8 F L 74 16 106/66 96 12/24/16 02:08 97.5 F L 92 17 110/62 97 12/24/16 02:00 96 12/24/16 01:41 96.5 F L 108 H 18 101/62 96 12/24/16 01:08 84 96 12/24/16 00:20 80 18 107/57 94 L 12/23/16 23:08 95.6 F L 63 22 101/55 94 L Intake and Output 12/23/16 12/24/16 12/24/16 22:59 06:59 14:59 Intake Total 500 240 Output Total 450 Balance 500 -210 Intake: Amount of Fluid Infused ( 500 ml) Oral 240 Output: Urine 450 Other: Voiding Method Toilet Urinal Urinal Weight 91.6 kg PHYSICAL EXAMINATION: HEENT: Head is atraumatic, normocephalic. Pupils equal, round. Neck is supple. There is no elevated jugular venous pressure. HEART EXAMINATION: Heart S1 and S2 irregularly irregular a systolic murmur is heard. CHEST EXAMINATION: Lungs are clear to auscultation and precussion. No chest wall tenderness is noted on palpation or with deep breathing. ABDOMEN: Soft, nontender. Bowel sounds are heard. No organomegaly noted. EXTREMITIES: 2+ peripheral pulses with no evidence of peripheral edema and no calf tenderness noted. NEUROLOGIC [patient is awake, alert , confused. Results 12/23/16 23:20 12/23/16 23:20 Cardiac Enzymes 12/23/16 12/23/16 Range/Units 23:20 23:20 AST 20 (17-59) U/L CK-MB (CK-2) 1.5 (0.0-2.4) ng/mL Troponin I <0.012 (0.000-0.034) ng/mL Coagulation 12/23/16 Range/Units 23:20 PT 18.8 H (9.0-12.0) sec APTT 30.3 H (22.0-30.0) sec CBC 12/23/16 Range/Units 23:20 WBC 7.0 (3.8-10.6) k/uL RBC 3.87 L (4.30-5.90) m/uL Hgb 12.1 L (13.0-17.5) gm/dL Hct 38.4 L (39.0-53.0) % Plt Count 200 (150-450) k/uL Comprehensive Metabolic Panel 12/23/16 Range/Units 23:20 Sodium 138 (137-145) mmol/L Potassium 4.6 (3.5-5.1) mmol/L Chloride 105 (98-107) mmol/L Carbon Dioxide 23 (22-30) mmol/L BUN 27 H (9-20) mg/dL Creatinine 1.10 (0.66-1.25) mg/dL Glucose 108 H (74-99) mg/dL Calcium 8.7 (8.4-10.2) mg/dL AST 20 (17-59) U/L ALT 25 (21-72) U/L Alkaline Phosphatase 47 (38-126) U/L Total Protein 5.9 L (6.3-8.2) g/dL Albumin 3.2 L (3.5-5.0) g/dL Current Medications Generic Name Dose Route Start Last Admin Trade Name Freq PRN Reason Stop Dose Admin Alprazolam 0.25 mg 12/24/16 04:09 12/24/16 04:41 Xanax PO 0.25 mg TID PRN Administration Agitation or Acute Anxiety Aspirin 325 mg 12/25/16 09:00 Aspirin PO DAILY SEYMOUR Nitroglycerin 0.4 mg 12/24/16 02:00 Nitrostat SUBLINGUAL Q5M PRN Chest Pain Intake and Output 12/23/16 12/24/16 12/24/16 22:59 06:59 14:59 Intake Total 500 240 Output Total 450 Balance 500 -210 Intake: Amount of Fluid Infused ( 500 ml) Oral 240 Output: Urine 450 Other: Voiding Method Toilet Urinal Urinal Weight 91.6 kg 12/23/16 23:20 12/23/16 23:20 EKG Interpretations (text) EKG shows atrial fibrillation with a controlled ventricular response. Assessment and Plan Plan: Assessment and plan #1 syncope, rule out cardiac causes. EKG shows atrial fibrillation with a controlled ventricular response. No Tachycardia or bradycardia arrhythmias noted on the monitor. #2 advanced dementia #3 chronic persistent atrial fibrillation, on Coumadin for anticoagulation, INR 1.9 on admission. Plan Echocardiogram with Doppler study was performed in September of this year which revealed an ejection fraction of 45-50%. We will not repeat an echo on this admission. Continue Coumadin to maintain an INR in the range of 2. We will check orthostatic blood pressure and heart rate every shift. Resume, metoprolol tartrate. Check to see if the patient has any history of stenting, if it's been greater than a year we will discontinue the aspirin and Plavix and continue Coumadin. DNP note has been reviewed, I agree with a documented findings and plan of care. Patient was seen and examined.
--- NOTE | 2016-12-24 11:09 | P.PN ---
Progress Note - Text this is an addendum to the dictated cardiology consultation. The patient presented with a syncopal episode that occurred upon changing position. The history is obtained from the daughter, the patient has an advanced dementia status and Alzheimer. He has chronic atrial fibrillation and has been anticoagulated and has underwent an echocardiogram recently that revealed injection fraction of 45-50% with mild mitral and tricuspid regurgitation. The patient is on Coumadin in addition to Plavix. Apparently he underwent cardiac catheterization recently but no stenting was done. The procedure was done by Dr. Barton and the full detail are not available to me. He was hypotensive on presentation but had no evidence of tachycardia or significant bradycardia arrhythmia. On physical examination he is supine with no signs or symptoms of heart failure , he is in atrial fibrillation. his lab data shows a normal troponin, his renal function and potassium are stable. His EKG shows no acute changes with persistent atrial fibrillation. The patient presents with orthostatic hypotension and syncope. I will hold his LAURA inhibitor and continue on the beta asim. I will try to obtain his prior cardiac catheterization to see if we should continue Plavix in view of the anticoagulation with Coumadin and increased risk of bleeding. Thank you for this consult we will follow with you.
[2016-12-24 12:20] LABS: Creatine Kinase 91 U/L (55-170)
[2016-12-24 12:33] LABS: Creatine Kinase MB 1.7 ng/mL (0.0-2.4); Troponin I <0.012 ng/mL (0.000-0.034)
[2016-12-24 13:09] LABS: Appearance,Urine Clear (Clear); Bilirubin,Urine Negative (Negative); Glucose,Urine (UA) Negative (Negative); Ketones,Urine Negative (Negative); Leukocyte Esterase,Urine Negative (Negative); Nitrite,Urine Negative (Negative); Protein,Urine Negative (Negative); Specific Gravity,Urine 1.005 (1.001-1.035); UA Billing (MACRO vs. MICRO) CHEM; Urobilinogen,Urine <2.0 mg/dL (<2.0)
[2016-12-24] MEDS ORDERED: ALBUTEROL NEBULIZED 2.5 MG/3 ML INHALATION PRN (13:33)
--- NOTE | 2016-12-24 15:42 | HP ---
HISTORY AND PHYSICAL DATE OF SERVICE: 12/24/2016. CHIEF COMPLAINT: Syncope. HISTORY OF PRESENT ILLNESS: This 76-year-old gentleman with a past medical history of dementia, history of coronary artery disease, history of atrial fibrillation being followed by Dr. Allan in the outpatient setting is apparently brought to the hospital with episode of syncope. The patient was apparently confused also. The patient also had an episode where the patient also had diaphoresis and possibly had orthostatic hypotension also. Currently the patient is confused and unable to give coherent history. Most of the history is taken with my discussion with staff and review of chart at this time. PAST MEDICAL HISTORY: History of dementia, history of COPD, history atrial fibrillation. MEDICATIONS: Prior to admission include home medications are: 1. Coumadin 5 mg p.o. q.h.s. 2. Ranexa 1000 mg p.o. b.i.d. 3. Seroquel 25 mg q.h.s. 4. Protonix 40 mg daily. 5. Nitrostat 0.4 mg subcu 5 p.r.n. 6. Lopressor 25 mg p.o. b.i.d. 7. Melatonin 10 mg q.h.s. 8. Zestril 2.5 mg. 9. Plavix 75 mg. 10.Ventolin 2.5 q.i.d. p.r.n. ALLERGIES: PENICILLIN. FAMILY HISTORY AND SOCIAL HISTORY: Could not be taken because of the change in mental status. PHYSICAL EXAM: Patient is conscious but confused. Minimally verbal. Pulse 84, blood pressure 106/68, respiration 18, temperature 96.8, pulse ox 94% on room air. HEENT: Conjunctivae are normal. Oral mucosa moist. NECK: No jugular venous distention. No thyroid enlargement. No lymph node enlargement. CARDIOVASCULAR: S1, S2. No S3, no S4. RESPIRATORY: Breath sounds diminished at the bases. A few scattered rhonchi. No crackles. ABDOMEN: Soft, nontender. No mass palpable. LEGS: No edema. NERVOUS SYSTEM: Higher functions as mentioned earlier. Moves all 4 limbs. No focal motor or sensory deficits. LYMPHATICS: No lymphadenopathy in the neck, axillae, or groin. SKIN: No ulcer, rash, bleeding. LAB STUDIES: At this time shows WBC 7, hemoglobin 12.1. INR 1.9. ASSESSMENT: 1. Syncope possibly orthostatic hypotension, rule out transient ischemic attack. 2. Dementia. 3. Atrial fibrillation, chronic. 4. Coronary artery disease recent cardiac cessation. 5. History of chronic obstructive pulmonary disease. 6. History of degenerative joint disease. RECOMMENDATION: This 76-year-old gentleman who presented with multiple complex medical issues, will monitor the patient closely. Continue the current medications, continue symptomatic treatment. Otherwise we will resume the home medications and hold the antihypertensive medication. Orthostatic vitals. The patient is on IV fluids. Otherwise monitor PT/INR and labs closely. The patient is apparently living with the family and at this time will continue to monitor. PT and OT also will be consulted. Prognosis guarded. Further management see orders for details. MMODL / IJN: [id number] /
--- NOTE | 2016-12-24 20:03 | P.CNNES ---
History of Present Illness Consult date: 12/24/16 History of Present Illness: The patient is a 76-year-old man with history of dementia atrial fibrillation and COPD. He is a poor historian. Admitted to the hospital with syncopal event and possible orthostatic hypotension. Shouldn't is unable to give any history. He denies any pain except for in his shoulders particularly the left shoulder. He denied any falls. The patient apparently lives at home with his family. He has been on Plavix and Coumadin. He had a CT of the brain which showed cerebral atrophy and chronic small vessel ischemia as well as mild ventricular enlargement. Neurology was requested see the patient regarding syncope. Review of Systems ROS unobtainable: due to mental status Past Medical History Past Medical History: Atrial Fibrillation, Coronary Artery Disease (CAD), Dementia Additional Past Medical History / Comment(s): Pt recently admitted to [facility] with dehydration/hypotension/ AMS. Other hx: Chronic afib, advanced dementia, low back pain, normocytic anemia., past shingelles History of Any Multi-Drug Resistant Organisms: None Reported Past Surgical History: Joint Replacement, Orthopedic Surgery Additional Past Surgical History / Comment(s): R knee surgery with pinning, R hand ring finger partial amputation, bilateral corrective eye surgery. Past Anesthesia/Blood Transfusion Reactions: No Reported Reaction Past Psychological History: No Psychological Hx Reported Additional Psychological History / Comment(s): Pt's Danay haley is his middle school technology teacher due to his dementia and he stays with her during the day and sometimes all night. Pt's is of sound mind but has physical limitations so a 2nd sudha is her middle school technology teacher. Pt's daughterDanay states she was trying to set up some home care-she states pt needs 24 hour supervision at this time. Pt's Danay haley drives him to [employer]. Smoking Status: Former smoker Past Alcohol Use History: None Reported Additional Past Alcohol Use History / Comment(s): Pt started smoking as a teen and quit in 1996 Past Drug Use History: None Reported - Past Family History Father History Unknown: Yes Family Medical History: COPD Additional Family Medical History / Comment(s): Father had emphysema and possibly diabetes. Mother History Unknown: Yes Additional Family Medical History / Comment(s): Mother was healthy and at the age of 72yrs. Medications and Allergies Home Medications Medication Instructions Recorded Confirmed Type Clopidogrel [Plavix] 75 mg PO DAILY 09/21/16 12/23/16 History Metoprolol Tartrate [Lopressor] 25 mg PO BID 09/21/16 12/23/16 History Nitroglycerin Sl Tabs [Nitrostat] 0.4 mg SUBLINGUAL Q5M PRN 09/21/16 12/23/16 History Ranolazine [Ranexa] 1,000 mg PO BID 09/21/16 12/23/16 History Pantoprazole Sodium [Protonix] 40 mg PO DAILY #30 tablet. 09/24/16 12/23/16 Rx QUEtiapine [SEROquel] 25 mg PO HS #30 tab 09/24/16 12/23/16 Rx Lisinopril [Zestril] 2.5 mg PO DAILY 10/05/16 12/23/16 History Warfarin Sodium [Coumadin] 5 mg PO HS #0 10/31/16 12/23/16 Rx Albuterol Nebulized [Ventolin 2.5 mg INHALATION RT-QID PRN 12/23/16 12/23/16 History Nebulized] Melatonin 10 mg PO HS 12/23/16 12/23/16 History Allergies Allergy/AdvReac Type Severity Reaction Status Date / Time Penicillins Allergy Unknown Verified 12/24/16 02:05 Childhood Physical Examination - Vital Signs Vital Signs: Vital Signs Temp Pulse Pulse Resp BP BP BP 12/24/16 16:48 121/65 117/78 12/24/16 16:00 96 F L 89 18 131/69 12/24/16 12:00 96.8 F L 84 18 12/24/16 08:00 96.8 F L 92 16 12/24/16 02:35 96.8 F L 74 16 12/24/16 02:08 97.5 F L 92 17 110/62 12/24/16 02:00 12/24/16 01:41 96.5 F L 108 H 18 101/62 12/24/16 01:08 84 12/24/16 00:20 80 18 107/57 12/23/16 23:08 95.6 F L 63 22 101/55 BP BP Pulse Ox 12/24/16 16:48 117/78 12/24/16 16:00 91 L 12/24/16 12:00 106/68 92 L 12/24/16 08:00 122/59 94 L 12/24/16 02:35 106/66 96 12/24/16 02:08 97 12/24/16 02:00 96 12/24/16 01:41 96 12/24/16 01:08 96 12/24/16 00:20 94 L 12/23/16 23:08 94 L Intake and Output 12/24/16 12/24/16 12/24/16 06:59 14:59 22:59 Intake Total 500 240 Output Total 450 Balance 500 -210 Intake: Amount of Fluid Infused ( 500 ml) Oral 240 Output: Urine 450 Other: Voiding Method Toilet Urinal Urinal Urinal # Voids 1 Weight 91.6 kg - Constitutional General appearance: average body habitus, cooperative - EENT EENT: PERRL - Respiratory Respiratory: lungs clear - Cardiovascular Cardiovascular: other (Irregularly irregular rhythm) - Integumentary Integumentary: normal - Neurologic Cranial nerve examination: PERRL, EOMI, VFF, V1/V2/V3 grossly intact, face symmetric, tongue midline Speech examination: intact Sensorimotor examination: intact Detailed motor examination: grossly full strength in all extremities - Psychiatric Psychiatric: cooperative Results - Laboratory Findings CBC and BMP: 12/23/16 23:20 12/23/16 23:20 Abnormal Lab Findings: Abnormal Labs 12/23/16 12/23/16 12/23/16 23:14 23:20 23:20 RBC 3.87 L Hgb 12.1 L Hct 38.4 L PT INR APTT BUN 27 H Glucose 108 H POC Glucose (mg/dL) 110 H Total Protein 5.9 L Albumin 3.2 L 12/23/16 23:20 RBC Hgb Hct PT 18.8 H INR 1.9 H APTT 30.3 H BUN Glucose POC Glucose (mg/dL) Total Protein Albumin Assessment and Plan (1) Syncope Status: Acute Code(s): R55 - SYNCOPE AND COLLAPSE (2) Dementia Status: Chronic Code(s): F03.90 - UNSPECIFIED DEMENTIA WITHOUT BEHAVIORAL DISTURBANCE (3) Dehydration Status: Acute Code(s): E86.0 - DEHYDRATION Plan: The patient is a 76-year-old man with dementia presents to the hospital with syncopal episode. He has a history of coronary artery disease and atrial fibrillation. Apparently he had an episode of orthostatic hypotension at home. It is CT of the brain which showed atrophy and mild ventricular enlargement. There is also small vessel ischemia. Recommend carotid ultrasound and EEG.
[2016-12-24] MEDS: QUEtiapine 25 MG TAB PO SCH (20:20)
[2016-12-24] MEDS: WARFARIN 5 MG TAB PO SCH (20:20)
[2016-12-24] MEDS: MELATONIN 5 MG TABLET PO SCH (20:20)
[2016-12-24] MEDS: METOPROLOL TARTRATE 25 MG TAB PO SCH (20:21)
[2016-12-24] MEDS: RANOLAZINE 500 MG TAB.ER.12H PO SCH (20:21)
[2016-12-24] MEDS: HALOPERIDOL LACTATE 5 MG/ML 1 ML VIAL IM PRN (23:30)
[2016-12-25] MEDS: PANTOPRAZOLE 40 MG TABLET PO SCH ×2 (07:44→07:59)
[2016-12-25] MEDS: CLOPIDOGREL 75 MG TAB PO SCH ×2 (07:44→07:59)
[2016-12-25] MEDS: METOPROLOL TARTRATE 25 MG TAB PO SCH ×3 (07:45→21:22)
[2016-12-25] MEDS: RANOLAZINE 500 MG TAB.ER.12H PO SCH ×3 (07:45→21:15)
[2016-12-25] MEDS ORDERED: ASPIRIN 325 MG TAB PO SCH (09:00)
--- NOTE | 2016-12-25 09:23 | US ---
EXAMINATION TYPE: US carotid duplex BILAT DATE OF EXAM: 12/25/2016 COMPARISON: NONE CLINICAL HISTORY: Syncope. EXAM MEASUREMENTS: RIGHT: Peak Systolic Velocity (PSV) cm/sec ----- Right CCA: 62.6 ----- Right ICA: 54.1 ----- Right ECA: 54.9 ICA/CCA ratio: 0.9 RIGHT: End Diastole cm/sec ----- Right CCA: 12.4 ----- Right ICA: 13.0 ----- Right ECA: 0.0 LEFT: Peak Systolic Velocity (PSV) cm/sec ----- Left CCA: 66.0 ----- Left ICA: 49.3 ----- Left ECA: 58.7 ICA/CCA ratio: 0.7 LEFT: End Diastole cm/sec ----- Left CCA: 8.6 ----- Left ICA: 14.6 ----- Left ECA: 7.2 VERTEBRALS (direction of flow): Right Vertebral: Antegrade Left Vertebral: Antegrade Patient uncooperative towards end of study, making last few pictures technically difficult. Mild plaque, no significant velocity elevations. IMPRESSION: Minimal sheehan scale plaquing without hemodynamically significant stenosis in either carot id arterial system.
[2016-12-25 09:31] LABS: Cholesterol 175 mg/dL (<200); HDL Cholesterol 40 mg/dL (40-60)
--- NOTE | 2016-12-25 16:33 | P.PN ---
Subjective Progress Note Date: 12/25/16 Principal diagnosis: Syncope This is a 76-year-old gentleman with history of chronic persistent atrial fibrillation, advanced dementia, most of the history was taken from the medical record. Patient was brought to the emergency center via EMS, apparently the daughter was present at the time of his admission and was answering most of the questions because the patient is quite confused. According to the emergency room patient had an episode of syncope and became extremely pale and diaphoretic, symptoms lasted for approximately 1 minute in duration. EKG on admission here showed atrial fibrillation with a controlled ventricular response. S2 x-ray revealed evidence of mild congestive heart failure and small bilateral pleural effusions. At scan of the brain was performed which revealed cerebral atrophy and chronic small vessel ischemia. Blood pressure on admission 102/56 heart rate in the 60s 94% on room air. White blood cell count 7.0, hemoglobin 12.1, platelet count 200. INR 1.9, potassium 4.6, BUN 27, creatinine 1.1. Magnesium 1.8. Troponin 0.012. 12/25 2016 She was seen and examined this morning, continues to be pleasantly confused, denies any dizziness. Blood pressure 98/50 with a heart rate in 80s. No significant orthostatics. Objective - Vital Signs Vital signs: Vital Signs Temp 97.3 F L 12/25/16 12:00 Pulse 89 12/25/16 12:00 Resp 16 12/25/16 12:00 BP 98/54 12/25/16 12:00 Pulse Ox 95 12/25/16 12:00 Intake & Output 12/24/16 12/25/16 12/25/16 18:59 06:59 18:59 Intake Total 240 120 240 Output Total 450 Balance -210 120 240 Intake: Oral 240 120 240 Output: Urine 450 Other: Voiding Method Urinal Urinal Urinal # Voids 1 1 1 - Exam PHYSICAL EXAMINATION: HEENT: [Head is atraumatic, normocephalic. Pupils equal, round. Neck is supple. There is no elevated jugular venous pressure.] HEART EXAMINATION: S1 and S2 irregularly irregular a systolic murmur is heard. CHEST EXAMINATION:[ Lungs are clear to auscultation and precussion. No chest wall tenderness is noted on palpation or with deep breathing.] ABDOMEN: [ Soft, nontender. Bowel sounds are heard. No organomegaly noted]. EXTREMITIES:[ 2+ peripheral pulses with no evidence of peripheral edema and no calf tenderness noted]. NEUROLOGIC [patient is awake, alert confused - Labs CBC & Chem 7: 12/23/16 23:20 12/23/16 23:20 Labs: Abnormal Lab Results - Last 24 Hours (Table) 12/23/16 Range/Units 23:20 LDL Cholesterol, Calc 111 H (0-99) mg/dL Microbiology - Last 24 Hours (Table) 12/24/16 12:50 Urine Culture - Preliminary Urine,Voided Assessment and Plan Plan: Assessment and plan #1 syncope, rule out cardiac causes. EKG shows atrial fibrillation with a controlled ventricular response. No Tachycardia or bradycardia arrhythmias noted on the monitor. #2 advanced dementia #3 chronic persistent atrial fibrillation, on Coumadin for anticoagulation, INR 1.9 on admission. Plan Echocardiogram with Doppler study was performed in September of this year which revealed an ejection fraction of 45-50%. We will not repeat an echo on this admission. Continue Coumadin to maintain an INR in the range of 2. She may be able to be discharged once cleared by primary. We'll make him a follow-up appointment in the office post discharge. DNP note has been reviewed, I agree with a documented findings and plan of care. Patient was seen and examined.
--- NOTE | 2016-12-25 17:13 | P.PN ---
Subjective Progress Note Date: 12/25/16 Progress note being dictated for Dr. Xavier. Interval history: This is a 76-year-old gentleman admitted with syncope, possible TIA, dementia and multiple other medical issues. Negative for orthostatic hypotension. Maintained on IV fluid hydration, Haldol. Remains agitated, combative with sitter at bedside. Evaluated by neurology with neurology workup in progress. Denies chest pain, palpitations or increasing shortness of breath. Denies lightheadedness dizziness or focal deficits. Anticoagulated on Coumadin, INR 1.9. Objective - Vital Signs Vital signs: Vital Signs Temp 97.3 F L 12/25/16 07:59 Pulse 89 12/25/16 07:59 Resp 16 12/25/16 07:59 BP 98/54 12/25/16 07:59 Pulse Ox 91 L 12/25/16 07:59 Intake & Output 12/24/16 12/25/16 12/25/16 18:59 06:59 18:59 Intake Total 240 120 240 Output Total 450 Balance -210 120 240 Intake: Oral 240 120 240 Output: Urine 450 Other: Voiding Method Urinal Urinal # Voids 1 1 - Exam PHYSICAL EXAM: VITAL SIGNS: As above GENERAL: Sitting up in bed, confused, agitated HEENT: Conjunctivae normal. eyes normal. Oral mucosa moist NECK: No JVD. No thyroid enlargement. No LNs CARDIOVASCULAR: S1, S2 muffled. Irregular, Positive systolic murmur RESPIRATION: Breath sounds diminished in the bases. Occasional scattered rhonchi, no crackles. ABDOMEN: Soft, nontender . No guarding. no masses palpable. Bowel sounds heard. LEGS: No edema. no swelling PSYCHIATRY: Alert and oriented -3, mood and affect normal. NERVOUS SYSTEM: Cranial N 2-12 grossly normal. Moves all 4 limbs. Diffuse weakness No focal deficits. No sensory deficit. Skin: no ulcer no rash Joints: No active swelling. No inflammation. Lymphatic system. No LN neck axilla or groin. - Labs CBC & Chem 7: 12/23/16 23:20 12/23/16 23:20 Labs: Abnormal Lab Results - Last 24 Hours (Table) 12/23/16 Range/Units 23:20 LDL Cholesterol, Calc 111 H (0-99) mg/dL Microbiology - Last 24 Hours (Table) 12/24/16 12:50 Urine Culture - Preliminary Urine,Voided Assessment and Plan Plan: 1. Syncope, rule out TIA. 2. [ Dementia]. 3. [ Chronic persistent atrial fibrillation]. 4. [ CAD]. Plan: Continue on current medication regime ,monitoring and symptomatic treatment. 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 Orthostatic vital signs every shift, currently negative for orthostatic hypotension. PT/OT. Prognosis guarded given multiple complex medical issues. Neuro workup in progress. Follow closely with neurology. Further recommendations to follow. Discharge planning in progress for tomorrow. The impression and plan of care has been dictated as directed. : I performed a history and examination of this patient, discussed the same with the dictator. I agree with the dictator's note ,documented as a scribe. Any additional findings or plans will be noted.
--- NOTE | 2016-12-25 19:08 | EEG ---
ELECTROENCEPHALOGRAM REPORT DATE OF EE12/25/2016. REFERRING PHYSICIAN: Dr. Xavier. CONSULTING INTERPRETING PHYSICIAN: Dr. Berhane Cassidy MD. ROOM: 662 bed 2. ELECTROENCEPHALOGRAPHIC EXAMINATION: INDICATION FOR EXAMINATION: This patient is a 76-year-old male being evaluated for acute syncopal episode and collapse. AGE: 76. EEG FINDINGS: A routine 21 channel awake digital EEG recording was accomplished utilizing the 10-20 international system with bipolar and referential montages. The background activity in the most alert resting state consists of a low to medium amplitude, poorly developed and poorly sustained 5-6 hertz activity over the posterior head regions. This posterior rhythm attenuates to eye opening. There is a small amount of low amplitude 18-20 hertz beta activity seen maximally over the anterior head regions. Muscle and movement artifact was observed on a few occasions during the tracing. Hyperventilation was not performed. Photic stimulation at flash frequencies of 2-30 hertz produced a minimal occipital driving response. No epileptiform discharges were seen. IMPRESSION: This EEG gives evidence of a severe widespread diffuse disturbance in cerebral function. The EEG failed to reveal any focal, lateralized, or epileptiform abnormalities. If clinically indicated a followup EEG is recommended. Clinical correlation is recommended. MMODL / IJN: [id number] /
[2016-12-25] MEDS: MELATONIN 5 MG TABLET PO SCH (21:21)
[2016-12-25] MEDS: QUEtiapine 25 MG TAB PO SCH (21:22)
[2016-12-25] MEDS: WARFARIN 5 MG TAB PO SCH (21:23)
[2016-12-25 23:14] VITALS: RESP 18
[2016-12-26] MEDS: HALOPERIDOL LACTATE 5 MG/ML 1 ML VIAL IM PRN (01:22)
[2016-12-26] MEDS: ALPRAZolam 0.25 MG TAB PO PRN (01:22)
[2016-12-26 08:20] VITALS: BP 105/65; PULSE 84; TEMP 97.5
[2016-12-26 08:38] LABS: Basophils # (A) 0.1 k/uL (0-0.2); Basophils % (A) 1 %; CH 31.4; CHCM 31.7; Eosinophils # (A) 0.6 k/uL (0-0.7); Eosinophils % (A) 7 %; HCT 42.1 % (39.0-53.0); HDW 2.22; HGB 13.3 gm/dL (13.0-17.5); Luc # (Auto) 0.22; Luc % (Auto) 3; Lymphocytes # (A) 2.6 k/uL (1.0-4.8); Lymphocytes % (A) 29 %; MCH 31.6 pg (25.0-35.0); MCHC 31.7 g/dL (31.0-37.0); MCV 99.6 fL (80.0-100.0); Macrocytosis Slight; Mean Platelet Volume 7.1; Monocytes # (A) 0.8 k/uL (0-1.0); Monocytes % (A) 9 %; Neutrophils # (A) 4.7 k/uL (1.3-7.7); Neutrophils % (A) 52 %; RBC 4.22 m/uL (4.30-5.90); RDW 14.6 % (11.5-15.5); WBC (Perox) 8.43
[2016-12-26 08:54] LABS: Anion Gap 12 mmol/L; Blood Urea Nitrogen 17 mg/dL (9-20); Calcium 9.3 mg/dL (8.4-10.2); Carbon Dioxide 24 mmol/L (22-30); Chloride 106 mmol/L (98-107); Glucose 94 mg/dL (74-99); Non-African American GFR(MDRD) >60 (>60 ml/min/1.73 sqM); Potassium 3.9 mmol/L (3.5-5.1); Sodium 142 mmol/L (137-145)
[2016-12-26] MEDS: METOPROLOL TARTRATE 25 MG TAB PO SCH (09:31)
[2016-12-26] MEDS: RANOLAZINE 500 MG TAB.ER.12H PO SCH (09:31)
[2016-12-26] MEDS: PANTOPRAZOLE 40 MG TABLET PO SCH (09:31)
[2016-12-26] MEDS: CLOPIDOGREL 75 MG TAB PO SCH (09:31)
[2016-12-26 12:17] LABS: INR 1.9 (<1.2); Prothrombin Time 18.4 sec (9.0-12.0)
--- NOTE | 2016-12-26 17:41 | P.DS ---
Providers Date of admission: 12/24/16 02:00 Attending physician: Jasen Xavier Consults: 12/24/16 02:00 Consult Physician Urgent Consulting Provider: Robert Nick Consult Reason/Comments: syncope Do you want consulting provider notified?: Yes Consult Physician Urgent Consulting Provider: Berhane Cassidy Consult Reason/Comments: syncope,tremor Do you want consulting provider notified?: Yes Primary care physician: [facility] Course: This 76-year-old gentleman with a past medical history multiple medical problems was admitted with syncope. The syncope was thought to be due to orthostatic hypotension and vasovagal reaction. Patient was treated symptomatically. Improved significantly. Patient discharged in a stable condition with guarded prognosis. On exam vitals stable. Patient is confused which is baseline. Cardio S1 and S2 normal. Respirator system clear to auscultation. Abdomen soft nontender. Final diagnosis 1. Syncope possibly secondary to orthostatic hypotension and as well as vasovagal reaction. 2. Dementia 3. Chronic persistent atrial fibrillation 4. History of CAD Patient Condition at Discharge: Fair Plan - Discharge Summary New Discharge Prescriptions: Continue Ranolazine [Ranexa] 1,000 mg PO BID Clopidogrel [Plavix] 75 mg PO DAILY Metoprolol Tartrate [Lopressor] 25 mg PO BID Nitroglycerin Sl Tabs [Nitrostat] 0.4 mg SUBLINGUAL Q5M PRN PRN Reason: Chest Pain QUEtiapine [SEROquel] 25 mg PO HS #30 tab Pantoprazole Sodium [Protonix] 40 mg PO DAILY #30 tablet. Lisinopril [Zestril] 2.5 mg PO DAILY Warfarin Sodium [Coumadin] 5 mg PO HS #0 Melatonin 10 mg PO HS Albuterol Nebulized [Ventolin Nebulized] 2.5 mg INHALATION RT-QID PRN PRN Reason: Shortness Of Breath Discharge Medication List Clopidogrel [Plavix] 75 mg PO DAILY 09/21/16 [History] Metoprolol Tartrate [Lopressor] 25 mg PO BID 09/21/16 [History] Nitroglycerin Sl Tabs [Nitrostat] 0.4 mg SUBLINGUAL Q5M PRN 09/21/16 [History] Ranolazine [Ranexa] 1,000 mg PO BID 09/21/16 [History] Pantoprazole Sodium [Protonix] 40 mg PO DAILY #30 tablet. 09/24/16 [Rx] QUEtiapine [SEROquel] 25 mg PO HS #30 tab 09/24/16 [Rx] Lisinopril [Zestril] 2.5 mg PO DAILY 10/05/16 [History] Warfarin Sodium [Coumadin] 5 mg PO HS #0 10/31/16 [Rx] Albuterol Nebulized [Ventolin Nebulized] 2.5 mg INHALATION RT-QID PRN 12/23/16 [ History] Melatonin 10 mg PO HS 12/23/16 [History] Follow up Appointment(s)/Referral(s): Sandra Allan MD [Primary Care Provider] - 1-2 days Discharge Disposition: HOME SELF-CARE
== END 2016-12-26 14:27 | disposition home or self-care (01) | DRG 312 ==
LOC: EC 23:05 → 6SEL 12-24 02:00 → 4MS4W 12-25 18:51
PROVIDERS: ADMIT Hospitalist; ATTEND Hospitalist
DX: I95.1 Orthostatic hypotension (principal); I48.1 Persistent atrial fibrillation; G30.9 Alzheimer's disease, unspecified; I50.9 Heart failure, unspecified; I48.2 Chronic atrial fibrillation; J44.9 Chronic obstructive pulmonary disease, unspecified; E86.0 Dehydration; F02.80 Dementia in other diseases classified elsewhere, unspecified severity, without behavioral disturbance, psychotic disturbance, mood disturbance, and anxiety; I08.1 Rheumatic disorders of both mitral and tricuspid valves; I25.10 Atherosclerotic heart disease of native coronary artery without angina pectoris; Z79.01 Long term (current) use of anticoagulants; Z79.02 Long term (current) use of antithrombotics/antiplatelets; Z79.899 Other long term (current) drug therapy; Z82.5 Family history of asthma and other chronic lower respiratory diseases; Z87.891 Personal history of nicotine dependence; Z88.0 Allergy status to penicillin
CPT/HCPCS: 36415; 70450; 71020; 80048; 80053; 80061; 81003; 82550; 82553; 83735; 84100; 84484; 85025; 85610; 85730; 87086; 93005; 93880; 94760; 95819; 96360; 99285